=== PATIENT | male | born 1950 | race Caucasian/White ===

== ENCOUNTER 2016-03-19 19:41 | Observation (INO) | payer MEDICARE, OTHER ==
[2016-03-19] MEDS ORDERED: NITROGLYCERIN SL TABS 0.4 MG TAB SUBLINGUAL PRN (21:59)
[2016-03-19] MEDS ORDERED: ALBUTEROL NEBULIZED 2.5 MG/3 ML INHALATION PRN (22:01)
[2016-03-19] MEDS ORDERED: traMADol 50 MG TAB PO PRN (22:01)
[2016-03-19] MEDS ORDERED: BISACODYL 5 MG TABLET.DR PO PRN (22:01)
--- NOTE | 2016-03-19 22:04 | ED ---
Chest Pain HPI - General Chief Complaint: Chest Pain Stated Complaint: Chest Pain Time Seen by Provider: 03/19/16 19:43 Source: patient, EMS, RN notes reviewed Mode of arrival: EMS Limitations: no limitations - History of Present Illness Initial Comments: This patient is 66-year-old man with history of previous coronary artery disease who was transferred here by ambulance to have probable admission for chest pain. The patient has been having intermittent chest pains for a couple of weeks now. He states that he had an episode that recurred today after he had finished his dialysis session. He indicates the pain is substernal and states that there were some symptoms to his arm. He describes the pain as aching. It was moderate in intensity but it has now resolved. He did go to [facility] where he had initial set of labs and an EKG, and then he was transferred here to have telemetry monitoring and cardiology consultation. The patient is currently symptom-free. MD Complaint: chest pain -: hour(s) Onset: during rest Pain Location: substernal Pain Radiation: LUE Severity: moderate Quality: aching Consistency: now resolved Improves With: nitroglycerin Worsens With: nothing Anginal Symptoms: dyspnea Treatments Prior to Arrival: aspirin, nitroglycerin - Related Data Home Medications Medication Instructions Recorded Confirmed Montelukast [Singulair] 10 mg PO HS 12/19/13 03/19/16 Allopurinol [Zyloprim] 100 mg PO BID 04/24/14 03/19/16 Ezetimibe [Zetia] 10 mg PO HS 04/24/14 03/19/16 Fenofibrate [Lofibra] 160 mg PO DAILY 04/24/14 03/19/16 Fluticasone Propionate [Flonase] 2 sprays EA NOSTRIL DAILY 04/24/14 03/19/16 Warfarin [Coumadin] 2.5 mg PO DAILY 03/13/15 03/19/16 Aspirin EC [Ecotrin Low Dose] 81 mg PO DAILY 12/12/15 03/19/16 Cholecalciferol [Vitamin D3] 5,000 unit PO DAILY 12/12/15 03/19/16 Insulin Aspart Protam & Aspart 15 unit SQ AC-TID 12/12/15 03/19/16 [NovoLOG MIX 70-30 Flexpen] Steele-3 Acid Ethyl Esters [Lovaza] 2 gm PO BID 12/12/15 03/19/16 Pregabalin [Lyrica] 150 mg PO TID 12/12/15 03/19/16 Simvastatin 80 mg PO HS 12/12/15 03/19/16 traMADol HCL [Ultram] 50 mg PO Q6HR PRN 12/12/15 03/19/16 Albuterol Sulfate [Proair Hfa] 2 puff INHALATION RT-Q6H PRN 02/02/16 03/19/16 Beclomethasone Dipropionate [Qvar 4 puff INHALATION RT-BID 02/02/16 03/19/16 80 mcg] Bisacodyl 5 mg PO DAILY PRN 02/02/16 03/19/16 FLUoxetine HCL 80 mg PO DAILY 02/02/16 03/19/16 Multivitamins, Thera [Multivitamin] 1 tab PO DAILY 02/02/16 03/19/16 Atenolol [Tenormin] 25 mg PO MOWEFR 03/19/16 03/19/16 Furosemide [Lasix] 20 mg PO BID 03/19/16 03/19/16 Insulin Degludec [Tresiba 20 unit SQ QAM 03/19/16 03/19/16 Flextouch U-100] Isosorbide Mononitrate ER [Imdur] 60 mg PO DAILY 03/19/16 03/19/16 Sevelamer [Renvela] 800 mg PO AC-TID 03/19/16 03/19/16 Vitamin B Comp W-C/FA/Zn Cit 1 tab PO DAILY 03/19/16 03/19/16 [Dialyvite 800-Zinc 50 mg Tab] Previous Rx's Medication Instructions Recorded Omeprazole [PriLOSEC] 20 mg PO AC-BRKFST #30 capsule. 12/23/13 Allergies Allergy/AdvReac Type Severity Reaction Status Date / Time calcipotriene [From Dovonex] Allergy Unknown Verified 03/19/16 20:09 Review of Systems ROS Statement: Those systems with pertinent positive or pertinent negative responses have been documented in the HPI. ROS Other: All systems not noted in ROS Statement are negative. Constitutional: Denies: fever Respiratory: Denies: cough, dyspnea Cardiovascular: Reports: as per HPI, chest pain. Denies: palpitations, orthopnea, edema, syncope Gastrointestinal: Denies: abdominal pain, vomiting, diarrhea Musculoskeletal: Denies: back pain Skin: Denies: rash Neurological: Denies: headache, weakness, numbness EKG Findings - EKG Results: EKG: interpreted by JING, sinus rhythm (Rate approximately 61 bpm), normal axis , normal ST/T - Blocks, [place], Hypertrophy, ST Abn: AV and intraventricular conduction: 1 AV block - VT, Pacemaker, Normal: Myocardial infarction: inferior VT (old age indeterminate) (There are Q waves in lead 3 and aVF that are present on the comparison EKG) Past Medical History Past Medical History: Asthma, Coronary Artery Disease (CAD), Chest Pain / Angina , CVA/TIA, Diabetes Mellitus, Deep Vein Thrombosis (DVT), GERD/Reflux, Hyperlipidemia, Hypertension, Myocardial Infarction (VT), Renal Disease, Sleep Apnea/CPAP/BIPAP Additional Past Medical History / Comment(s): HAD URI IN JANUARY 2014-NOW RESOLVEDCVA x3 1995 leaving his left side weaker then right Last Myocardial Infarction Date:: unable to obtain History of Any Multi-Drug Resistant Organisms: MRSA Date of last positivie culture/infection: 08/12/05 MDRO Source:: Unknown Past Surgical History: Heart Catheterization Additional Past Surgical History / Comment(s): Fem pop bypass, quad bypass, finger amputation, bone and skin graft Past Anesthesia/Blood Transfusion Reactions: No Reported Reaction Past Psychological History: No Psychological Hx Reported Additional Psychological History / Comment(s): lives in the family home with his . No experience. Medically disabled. There are no animals within the home. Smoking Status: Former smoker Past Alcohol Use History: Rare Additional Past Alcohol Use History / Comment(s): chews tobacco Past Drug Use History: None Reported - Past Family History Father History Unknown: Yes Family Medical History: No Reported History, Unable to Obtain Mother Family Medical History: Unable to Obtain Brother(s) Family Medical History: Cancer Sister(s) Family Medical History: Cancer General Exam Limitations: no limitations General appearance: alert, in no apparent distress, obese Head exam: Present: atraumatic, normocephalic Eye exam: Present: normal appearance Respiratory exam: Present: normal lung sounds bilaterally. Absent: respiratory distress, wheezes, rales, rhonchi, stridor Cardiovascular Exam: Present: regular rate, normal rhythm, normal heart sounds. Absent: systolic murmur, diastolic murmur, rubs, gallop GI/Abdominal exam: Present: soft. Absent: distended, tenderness, guarding, rebound, mass Extremities exam: Present: normal inspection, normal capillary refill. Absent: pedal edema, calf tenderness Back exam: Absent: CVA tenderness (R), CVA tenderness (L) Neurological exam: Present: alert Skin exam: Present: warm, dry, intact, normal color. Absent: rash, cyanosis, diaphoretic, erythema, petechiae, pallor, mottled Course Vital Signs 03/19/16 03/19/16 03/19/16 19:46 19:53 20:08 Temperature 97.9 F Pulse Rate 60 64 Respiratory 16 16 Rate Blood Pressure 87/52 94/55 O2 Sat by Pulse 95 98 Oximetry 03/19/16 03/19/16 03/19/16 20:41 21:13 21:37 Temperature Pulse Rate 62 60 58 L Respiratory 16 16 16 Rate Blood Pressure 135/67 94/53 103/56 O2 Sat by Pulse 96 96 95 Oximetry 03/19/16 22:26 Temperature Pulse Rate 57 L Respiratory 16 Rate Blood Pressure 103/53 O2 Sat by Pulse 95 Oximetry Disposition Clinical Impression: Chest pain Disposition: ADMITTED IP TO THIS HOSP Condition: Fair
[2016-03-19] MEDS ORDERED: ATENOLOL 25 MG TAB PO SCH (22:15)
[2016-03-19] MEDS ORDERED: MORPHINE SULFATE 4 MG/ML SYRINGE IV PRN (22:29)
[2016-03-19 23:34] VITALS: BMI 38.9
[2016-03-20 02:34] LABS: Creatine Kinase MB 1.1 ng/mL (0.0-2.4); Troponin I 0.017 ng/mL (0.000-0.034)
[2016-03-20 07:00] LABS: Glucose,Whole Blood 190 mg/dL (75-99)
[2016-03-20] MEDS: BECLOMETHASONE DIP 80 MCG/PUFF INHALER INHALATION SCH ×2 (07:58→18:46)
[2016-03-20 08:00] LABS: Cholesterol 172 mg/dL (<200); HDL Cholesterol 41 mg/dL (40-60); Triglycerides 342 mg/dL (<150)
[2016-03-20 08:43] LABS: Creatine Kinase MB 0.9 ng/mL (0.0-2.4); Troponin I 0.016 ng/mL (0.000-0.034)
[2016-03-20] MEDS ORDERED: INSULIN DEGLUDEC 20 UNIT SQ SCH (09:00)
[2016-03-20] MEDS ORDERED: NON-FORMULARY DRUG (Omega-3 Acid Ethyl Esters [Lovaza] 2 GM) PO SCH (09:00)
[2016-03-20] MEDS ORDERED: NON-FORMULARY DRUG (Aspirin Ec 81 MG) PO SCH (09:00)
--- NOTE | 2016-03-20 11:37 | CONS ---
DATE OF CONSULTATION: Mr. Willoughby is a 66-year-old male patient of Dr. Kerr, I think he sees him in [place]. He presented with recurrent chest discomfort. His 12-lead ECG shows sinus rhythm with an ST-segment abnormality that may not be new in the inferior leads. First set of cardiac enzymes is normal. He is pain-free at this time. No dizziness or lightheadedness. Possible history of coronary artery disease, status post coronary artery grafting, chronic renal failure on dialysis, history of atrial fibrillation, history of preserved LV systolic function with diastolic heart failure in the past. He also had a history of DVT and obstructive sleep apnea using a BiPAP mask. Past history of MRSA. He may have had a CVA in the past. He has diabetes. FAMILY HISTORY: Not obtainable. SOCIAL HISTORY: He chews tobacco. Medication list was reviewed and is quite extensive. He is on atorvastatin 40 mg daily, he takes aspirin. Allergies are documented in the chart. On examination, he is lying comfortably in bed. His blood pressure is 128/66 mmHg, respiratory rate is normal. He looks comfortable. Pulse rate is in the 50s. He is afebrile 97.7 degrees Fahrenheit. Head and neck examination is normal. Heart sounds S1, S2 are soft. Abdomen is soft, nontender. Extremities are warm, no edema. IMPRESSION: 1. A 66-year-old male patient with known history of coronary artery disease, status post coronary artery bypass grafting, who presents with chest discomfort, first set of cardiac enzymes is normal, ECG shows some borderline changes in the inferior leads and these may be old. 2. Diabetes adult-onset. 3. History of paroxysmal atrial fibrillation. 4. End-stage kidney disease on dialysis. 5. History of obstructive sleep apnea. 6. History of preserved left ventricular systolic function. 7. Past history of deep venous thrombosis. 8. History of cerebrovascular accident in the past. SUGGEST: 1. Three set of cardiac enzymes and then if these are normal, then I will set him up for pharmacologic stress test. 2. Continue current medications and continue anticoagulation for now for stroke prevention.
[2016-03-20] MEDS: INSULN ASP PRT/INSULIN ASPART 100 UNIT/ML 10 ML VIAL SQ SCH ×3 (11:51→17:40)
[2016-03-20] MEDS: FUROSEMIDE 20 MG TAB PO SCH ×2 (12:01→20:58)
[2016-03-20] MEDS: FOLIC ACID-VIT B COMPLEX-VIT C 1 CAP PO SCH (12:01)
[2016-03-20] MEDS: CHOLECALCIFEROL 1,000 UNIT TAB PO SCH (12:01)
[2016-03-20] MEDS: ISOSORBIDE MONONITRATE ER 60 MG TAB.ER.24H PO SCH (12:01)
[2016-03-20] MEDS: PREGABALIN 75 MG CAP PO SCH ×3 (12:01→20:58)
[2016-03-20] MEDS: MULTIVITAMINS, THERA 1 EACH TAB PO SCH (12:01)
[2016-03-20] MEDS: WARFARIN 2.5 MG TAB PO SCH (12:01)
[2016-03-20] MEDS: FLUoxetine HCL 20 MG CAP PO SCH (12:02)
[2016-03-20] MEDS: ALLOPURINOL 100 MG TAB PO SCH ×2 (12:02→20:58)
[2016-03-20] MEDS: SEVELAMER 800 MG TAB PO SCH ×3 (12:02→17:40)
[2016-03-20] MEDS: ASPIRIN 325 MG TAB PO SCH (12:02)
[2016-03-20] MEDS: PANTOPRAZOLE 40 MG TABLET PO SCH (12:02)
[2016-03-20] MEDS: FENOFIBRATE 160 MG TAB PO SCH (12:02)
[2016-03-20 12:03] LABS: Glucose,Whole Blood 153 mg/dL (75-99)
[2016-03-20] MEDS: FLUTICASONE 50MCG/SPRAY NASAL 16GM EA NOSTRIL SCH (12:03)
[2016-03-20 13:20] LABS: Hemoglobin A1C 6.6 % (4.2-6.1)
[2016-03-20 17:09] LABS: Glucose,Whole Blood 236 mg/dL (75-99)
[2016-03-20 20:37] LABS: Glucose,Whole Blood 236 mg/dL (75-99)
[2016-03-20] MEDS ORDERED: EZETIMIBE 10 MG TAB PO SCH (21:00)
[2016-03-20] MEDS ORDERED: MONTELUKAST 10 MG TAB PO SCH (21:00)
[2016-03-20] MEDS ORDERED: ATORVASTATIN 40 MG TAB PO SCH (21:00)
[2016-03-21 04:19] VITALS: RESP 18
[2016-03-21 07:15] LABS: Glucose,Whole Blood 222 mg/dL (75-99)
[2016-03-21] MEDS ORDERED: AMINOPHYLLINE 500 MG/20 ML VIAL IV PRN (09:10)
[2016-03-21] MEDS ORDERED: REGADENOSON 0.4 MG/5 ML SYRINGE IV ONE (09:10)
[2016-03-21] MEDS: BECLOMETHASONE DIP 80 MCG/PUFF INHALER INHALATION SCH (09:40)
--- NOTE | 2016-03-21 12:13 | EST ---
DATE OF SERVICE: 03/21/2016 AGE: 66Y SEX: M HT: 66" WT: 240 lbs. Lexiscan Cardiolite Stress Test *Heart Rate Blood Pressure *Rest: 56 Rest: 129/56 * *Max. Achieved: 76 Maximum BP: 181/77 85% PMHR: - 100% PMHR: - *METS: - INDICATIONS: Chest pain. MEDICATIONS: - Baseline EKG showed sinus rhythm with evidence of old inferior wall NC. Blood pressure at rest is 129/56 with pulse rate of 56. A standard dose of Lexiscan was infused. EKGs taken during and after infusion did not reveal any significant changes from the baseline. FINAL IMPRESSION: 1. Negative Lexiscan stress test. 2. Report on the nuclear images to be given by the radiologist.
[2016-03-21 12:28] LABS: Glucose,Whole Blood 180 mg/dL (75-99)
--- NOTE | 2016-03-21 12:39 | HP ---
DATE OF ADMISSION: 03/19/2016 PRESENTING COMPLAINT: Chest pain. HISTORY OF PRESENTING COMPLAINT: This patient was seen by me yesterday on 03/20/2016. This morning, my H&P cannot be located. I did track down from garage door service technician, hence this is being repeated again. This is a 66-year-old patient of Dr. Man whose chronic stable medical conditions include diabetes mellitus type 2, GERD, hyperlipidemia, hypertension, some kidney disease, has sleep apnea. Patient had stroke x4 with some residual left-sided weakness. Patient does use a walker to get about. Patient also has got known peripheral artery disease. Patient presented with central chest pressure localized in the lower sternum. There is no radiation, no shortness of breath, no dizziness, no perspiration. It lasted for a good 1/2 hour. Patient had some response to nitro, nitro ( ) patient presented. REVIEW OF SYSTEMS: CONSTITUTIONAL: Tired. HEENT: Slightly decreased hearing. RESPIRATORY: Occasional shortness of breath. CARDIOVASCULAR: As above. GASTROINTESTINAL: Heartburn. GENITOURINARY: None. MUSCULOSKELETAL: Aches and pains in the joints. DERMATOLOGICAL: None. HEMATOLOGICAL: None. LYMPHATIC: None. PSYCHIATRY: Slightly forgetful. NEUROLOGICAL: Slight weakness on the left side. Past history of coronary artery disease, stroke, diabetes mellitus type 2, DVT, GERD, hyperlipidemia, hypertension, renal disease, questionable sleep apnea, stroke x4, cataract repair on the right unable to obtain. PAST SURGICAL HISTORY: Cardiac catheterization, fem-pop bypass x2, quadruple bypass, finger amputation, bone and skin graft. SOCIAL HISTORY: Patient medically disabled, lives with his , a smoker, smokes and chews tobacco. Family history of cancer, diabetes mellitus type 2, heart problems. HOME MEDICATIONS: 1. Voltaren gel 100 gm topical q.i.d. p.r.n. 2. Prozac 80 mg p.o. daily. 3. Aspirin 81 mg p.o. daily. 4. Vitamin B complex 1 tablet p.o. daily. 5. Coumadin 2.5 q.h.s. 6. Lovaza 2 gm p.o. daily. 7. Flonase 2 sprays each nostril daily. 8. Lofibra 160 mg p.o. daily. 9. NovoLog mix 70/30 fifteen units subQ a.c. t.i.d. 10. Lyrica 150 mg p.o. t.i.d. 11. Prilosec 20 mg with breakfast. 12. Multivitamin 1 tablet p.o. daily. 13. Tresiba Flextouch 50 units subQ q.h.s. 14. QVAR 80 mg 4 puffs b.i.d. 15. ProAir 2 puffs q.6 p.r.n. 16. Renvela 800 mg a.c. t.i.d. 17. Singulair 10 mg p.o. q.h.s. 18. Zetia 10 mg q.h.s. 19. Vitamin D3 one thousand units p.o. daily. 20. Allopurinol 100 mg p.o. b.i.d. 21. Ultram 50 mg p.o. q.6 p.r.n. 22. Simvastatin 80 mg q.h.s. 23. Imdur ER 60 mg p.o. daily. 24. Lasix 20 mg p.o. daily. 25. Tenormin 25 mg p.o. daily. Allergies to CALCIPOTRIENE. On examination, vital signs on presentation: Temperature 97.9, pulse 60, respiration 18, blood pressure 94/55, pulse ox 98%. GENERAL APPEARANCE: Well built, BMI of 30, lying in bed, tired-appearing. EYES: Pupils equal. Conjunctivae normal. HEENT: Oral cavity normal. NECK: JVD not raised. Mass not palpable. Respiratory effort normal. LUNGS: Slightly diminished breath sounds. CARDIOVASCULAR: First and second sounds normal. No edema. ABDOMEN: Soft, nontender. Liver and spleen not palpable. LYMPHATIC: No lymph node palpable in neck or axillae. PSYCHIATRY: Patient able to answer simple questions. NEUROLOGICAL: Pupils equal. Cranial nerves grossly intact. Mild weakness on the left side. INVESTIGATIONS: Accu-Cheks are noted, troponins are noted. EKG normal sinus rhythm with some spossible ST segment, which is questionable. ASSESSMENT: 1. Possible unstable angina in a patient with known coronary artery disease. 2. Coronary artery disease with prior history of quadruple bypass. 3. Peripheral artery disease with prior history femoropopliteal bypass type 2. 4. Left-sided weakness power 4/5 from a previous stroke. 5. Diabetes mellitus type 2, chronically on insulin. 6. Gastroesophageal reflux disease. 7. Hyperlipidemia. 8. Essential hypertension. PLAN: Cardiology was consulted, who plan to do a stress test. Care was discussed with the patient. atient was seen by me yesterday as reported above has gone. DATE OF SERVICE: 03/20/2016. Patient was seen by me yesterday, as reported above, my dictation has gone missing.
--- NOTE | 2016-03-21 12:43 | NM ---
EXAMINATION TYPE: NM stress lexiscan cardiolite DATE OF EXAM: 03/21/2016 12:33 PM COMPARISON: NONE HISTORY: History of tobacco use, hypertension, diabetes, prior stroke, family history of coronary art amalia disease, angina, and prior catheterization with 4 vessel CABG presents with chest pain. TECHNIQUE: After the intravenous administration of 9.2 mCi Tc 99m Sestamibi - Cardiolite resting SPE CT images acquired 55 minutes post injection. The patient received 0.4mg Lexiscan, 25 mCi Tc 99m Sestamibi - Stress images obtained 40 minutes post injection FINDINGS: Review of stress and rest SPECT images demonstrates diminished uptake involving the inferior left chava tricular wall seen best on short axis and vertical long axis views on stress and rest SPECT imaging w ith some extension to involve the basal left lateral wall noted. Findings suggest old infarct at this level. There is suggestion of some increased color intensity on rest images versus rest images invol ving the lateral left ventricular wall in the mid to apical segment seen best on horizontal long axis views in which. Infarct ischemia cannot be excluded. Finding is confirmed on Polar map. Gated analys is shows normal wall motion of the anterior and septal pace with an estimated left ventricular eject ion fraction of 61 %. Suboptimal analysis of inferior wall is present. IMPRESSION: Suspect old infarct left inferior ventricular wall with lateral wall extension, some areas of brad-in farct ischemia cannot be excluded particularly in the lateral wall, need to further investigate with direct catheter angiogram should be based on clinical and EKG correlation.
[2016-03-21 12:44] LABS: Basophils % (A) 1 %; CH 29.8; CHCM 33.2; Eosinophils # (A) 0.2 k/uL (0-0.7); Eosinophils % (A) 3 %; HCT 40.4 % (39.0-53.0); HDW 2.59; HGB 13.3 gm/dL (13.0-17.5); Luc # (Auto) 0.21; Luc % (Auto) 3; Lymphocytes # (A) 1.2 k/uL (1.0-4.8); Lymphocytes % (A) 18 %; MCH 29.7 pg (25.0-35.0); MCHC 32.8 g/dL (31.0-37.0); MCV 90.3 fL (80.0-100.0); Mean Platelet Volume 9.1; Monocytes # (A) 0.5 k/uL (0-1.0); Monocytes % (A) 7 %; Neutrophils # (A) 4.7 k/uL (1.3-7.7); Neutrophils % (A) 69 %; RBC 4.48 m/uL (4.30-5.90); RDW 13.7 % (11.5-15.5); WBC 6.8 k/uL (3.8-10.6); WBC (Perox) 6.98
[2016-03-21 12:54] LABS: Potassium 5.3 mmol/L (3.5-5.1)
[2016-03-21] MEDS: INSULN ASP PRT/INSULIN ASPART 100 UNIT/ML 10 ML VIAL SQ SCH ×3 (12:58→19:03)
[2016-03-21] MEDS: SEVELAMER 800 MG TAB PO SCH ×2 (13:29→19:03)
[2016-03-21 17:21] LABS: Glucose,Whole Blood 233 mg/dL (75-99)
[2016-03-21] MEDS ORDERED: GELATIN SPONGE,ABSORB (SMALL) 1 EACH SPONGE ONE (19:00)
[2016-03-21] MEDS: FUROSEMIDE 20 MG TAB PO SCH (19:02)
[2016-03-21] MEDS: ALLOPURINOL 100 MG TAB PO SCH (19:02)
[2016-03-21] MEDS: CHOLECALCIFEROL 1,000 UNIT TAB PO SCH (19:02)
[2016-03-21] MEDS: ASPIRIN 325 MG TAB PO SCH (19:02)
[2016-03-21] MEDS: FOLIC ACID-VIT B COMPLEX-VIT C 1 CAP PO SCH (19:02)
[2016-03-21] MEDS: MULTIVITAMINS, THERA 1 EACH TAB PO SCH (19:02)
[2016-03-21] MEDS: PANTOPRAZOLE 40 MG TABLET PO SCH (19:02)
[2016-03-21] MEDS: ISOSORBIDE MONONITRATE ER 60 MG TAB.ER.24H PO SCH (19:02)
[2016-03-21] MEDS: FENOFIBRATE 160 MG TAB PO SCH (19:02)
[2016-03-21] MEDS: FLUTICASONE 50MCG/SPRAY NASAL 16GM EA NOSTRIL SCH (19:02)
[2016-03-21] MEDS: FLUoxetine HCL 20 MG CAP PO SCH (19:02)
[2016-03-21] MEDS: PREGABALIN 75 MG CAP PO SCH (19:03)
[2016-03-21] MEDS: WARFARIN 2.5 MG TAB PO SCH (19:03)
[2016-03-21 20:53] VITALS: BP 106/64; PULSE 61; TEMP 97.2
--- NOTE | 2016-03-22 08:19 | DS ---
DATE OF ADMISSION: 03/19/2016 DATE OF DISCHARGE: 03/21/2016 FINAL DIAGNOSES: 1. Chest pain in a patient with known coronary artery disease. 2. Coronary artery disease with prior history of quadruple bypass. 3. Peripheral artery disease with prior history of femorofemoral bypass. 4. Left-sided weakness, power 4/5 from previous stroke. 5. Diabetes mellitus type 2, chronically on insulin. 6. Gastroesophageal reflux disease. 7. Hyperlipidemia. 8. Essential hypertension. 9. Gait dysfunction; uses a walker. 10. End-stage kidney disease on hemodialysis. HOSPITAL COURSE: This patient with known coronary artery disease presented with chest pain. The patient underwent a nuclear stress test. Patient seen by Dr. Alvarez. He okayed the patient to be discharged with no change in medications. On examination, lungs are clear. CARDIOVASCULAR: First and second sounds normal. Patient has had no further chest symptoms. DISCHARGE MEDICATIONS: 1. Singulair 10 mg q.h.s. 2. Prilosec 20 mg p.o. with breakfast. 3. Allopurinol 100 mg b.i.d. 4. Zetia 10 mg p.o. q.h.s. 5. Lofibra 160 mg p.o. daily. 6. Flonase 2 sprays each nostril daily. 7. Coumadin 2.5 mg p.o. q.h.s. 8. Aspirin 81 mg p.o. daily. 9. Vitamin D3, 5000 units p.o. daily. 10. NovoLog Mix 70/30, 15 units a.c. ( ) 11. Lovaza 2 grams p.o. b.i.d. 12. Lyrica 150 mg t.i.d. 13. Simvastatin 80 mg q.h.s. 14. Ultram 50 mg p.o. q.6 p.r.n. 15. ProAir 2 puffs q.6 p.r.n. 16. Qvar 80 mcg 4 puffs b.i.d. 17. Prozac 80 mg p.o. daily. 18. Multivitamin 1 tablet p.o. daily. 19. Tenormin 25 mg p.o. daily. 20. Voltaren topical q.i.d. p.r.n. 21. Lasix 20 mg p.o. b.i.d. 22. Flextouch 50 units subcu q.h.s., that is Tresiba. 23. Imdur ER 60 mg a day. 24. Renvela 800 mg a.c. t.i.d. 25. Dialyvite 1 tablet p.o. daily. 26. Nitrostat 0.4 sublingual q.5 p.r.n. Follow up with Dr. Man in one week. Follow up with Dr. Morenita Kerr in one week. Discharge home.
== END 2016-03-21 20:10 | disposition home or self-care (01) ==
LOC: EC 19:41 → 3OBS 21:59
PROVIDERS: ADMIT Hospitalist; ATTEND Hospitalist
DX: R07.9 Chest pain, unspecified (principal); I25.10 Atherosclerotic heart disease of native coronary artery without angina pectoris; E11.22 Type 2 diabetes mellitus with diabetic chronic kidney disease; E78.5 Hyperlipidemia, unspecified; G47.33 Obstructive sleep apnea (adult) (pediatric); I25.2 Old myocardial infarction; I48.0 Paroxysmal atrial fibrillation; I50.32 Chronic diastolic (congestive) heart failure; I73.9 Peripheral vascular disease, unspecified; J45.909 Unspecified asthma, uncomplicated; K21.9 Gastro-esophageal reflux disease without esophagitis; N18.6 End stage renal disease; I13.2 Hypertensive heart and chronic kidney disease with heart failure and with stage 5 chronic kidney disease, or end stage renal disease; Z99.2 Dependence on renal dialysis; Z79.4 Long term (current) use of insulin; I69.354 Hemiplegia and hemiparesis following cerebral infarction affecting left non-dominant side; Z79.01 Long term (current) use of anticoagulants; Z79.82 Long term (current) use of aspirin; Z86.718 Personal history of other venous thrombosis and embolism; Z95.1 Presence of aortocoronary bypass graft; R26.9 Unspecified abnormalities of gait and mobility; Z72.0 Tobacco use; Z79.899 Other long term (current) drug therapy; Z79.51 Long term (current) use of inhaled steroids; Z88.8 Allergy status to other drugs, medicaments and biological substances
CPT/HCPCS: 36415; 94640 ×3; 93005 ×2; 93017; 80061; 80048; 83036; 82550; 82553; 84484 ×2; 85025; 78452; 99285; G0378 ×3; G0257; A9500; J2785; 90935

== ENCOUNTER → 2016-04-10 | Outpatient (CLI) | payer MEDICARE, OTHER ==
--- NOTE | 2016-04-10 22:41 | PN ---
Myles is coming to see me in followup regarding his obstructive sleep apnea. The patient is staying at [facility]; he has been there for the past year. He is known to have obstructive sleep apnea and he is using an Auto CPAP unit with a minimum pressure of 6 and a maximum pressure of 15. He is averaging around 5.4 hours of CPAP use per night. His P90 pressure is at 8.6. He is compliant with CPAP therapy. He is using a Simplus full-face mask. No major hypersomnia or sleepiness during the day. He has no specific complaints otherwise for now. He has multiple comorbidities, most significant of which is end-stage renal disease, and the patient is currently on hemodialysis. He is known to have diabetes, congestive heart failure, CVA/TIA, hypertension, coronary artery disease with previous myocardial infarction, peripheral vascular disease and CHF with diastolic dysfunction. CURRENT VITALS: BP is 102/64, pulse 50, respiratory rate 16. Weight is 242. Temperature is 97.8, saturation 95% on room air. GENERAL APPEARANCE: Calm, comfortable. HEENT: Negative for JVD. There is no goiter or neck masses. LUNGS: Diminished breath sounds bilaterally. HEART: Sounds are regular rate and rhythm. Normal S1, S2. No S3. No S4. No murmurs. ABDOMEN: Soft, nontender. No organomegaly. EXTREMITIES: No edema. No cyanosis or clubbing. The patient has a functional AV fistula. IMPRESSION: Symptomatic obstructive sleep apnea, severe, currently inactive and stable. The patient is receiving oxygen with CPAP therapy with a pressure minimum of 6 and a maximum of 15. PLAN: 1. Renew this patient's CPAP supplies. 2. Encourage weight loss. 3. Will see him back in a year's time in followup; earlier if needed.
== END | disposition home or self-care (01) ==
LOC: SLEEP 14:23
PROVIDERS: ATTEND Internal Medicine Critical Care Medicine
DX: G47.33 Obstructive sleep apnea (adult) (pediatric) (principal); Z99.89 Dependence on other enabling machines and devices

== ENCOUNTER 2016-06-27 16:40 | Inpatient (IN) | payer MEDICARE, OTHER ==
[2016-06-27] MEDS ORDERED: SODIUM CHLORIDE 0.9% 1,000 ML IV STA (17:01)
[2016-06-27] MEDS ORDERED: NOREPINEPHRIN 4 MG-0.9% NS PMX 4 MG/250 ML ML IV ONE (17:01)
--- NOTE | 2016-06-27 17:18 | ED ---
General Adult HPI - General Chief complaint: Shortness of Breath Stated complaint: hypotension Time Seen by Provider: 06/27/16 17:00 Source: patient, EMS, RN notes reviewed Mode of arrival: EMS Limitations: no limitations - History of Present Illness Initial comments: This is a 66-year-old male who had extra dialysis done today apparently believes he was found to be hypotensive. He was transferred from [facility]. He was started on dopamine and IV fluids he apparently had some response to this but upon arrival here was still noted to be hypotensive. He has had 2 peripheral IVs in. He has a dialysis fistula in the left upper extremity. He denies any fevers chills nausea vomiting sweats at this time. He purely had a white count 10.4 and chest x-ray shows some pulmonary prominence. He had blood pressure apparently of 84/64. - Related Data Home Medications Medication Instructions Recorded Confirmed Montelukast [Singulair] 10 mg PO HS 12/19/13 06/27/16 Allopurinol [Zyloprim] 100 mg PO BID 04/24/14 06/27/16 Fenofibrate [Lofibra] 160 mg PO DAILY 04/24/14 06/27/16 Fluticasone Propionate [Flonase] 2 sprays EA NOSTRIL DAILY 04/24/14 06/27/16 Warfarin [Coumadin] 2.5 mg PO HS 03/13/15 06/27/16 [place]-3 Acid Ethyl Esters [Lovaza] 2 gm PO BID 12/12/15 06/27/16 traMADol HCL [Ultram] 50 mg PO Q6HR PRN 12/12/15 06/27/16 FLUoxetine HCL 80 mg PO DAILY 02/02/16 06/27/16 Atenolol [Tenormin] 25 mg PO DAILY 03/19/16 06/27/16 Furosemide [Lasix] 20 mg PO BID 03/19/16 06/27/16 Insulin Degludec [Tresiba 60 unit SQ HS 03/19/16 06/27/16 Flextouch U-100] Isosorbide Mononitrate ER [Imdur] 60 mg PO DAILY 03/19/16 06/27/16 Albuterol Inhaler [Ventolin Hfa 2 puff INHALATION RT-Q4H PRN 06/27/16 06/27/16 Inhaler] Atorvastatin [Lipitor] 40 mg PO HS 06/27/16 06/27/16 Beclomethasone Dipropionate [Qvar 2 puff INHALATION RT-BID 06/27/16 06/27/16 40 mcg] Isosorbide Mononitrate ER [Imdur] 30 mg PO BID 06/27/16 06/27/16 Lactulose 10 gm PO DAILY 06/27/16 06/27/16 Previous Rx's Medication Instructions Recorded Nitroglycerin Sl Tabs [Nitrostat] 0.4 mg SUBLINGUAL Q5M PRN #0 tab 03/21/16 Allergies Allergy/AdvReac Type Severity Reaction Status Date / Time calcipotriene [From Dovonex] Allergy Unknown Verified 06/27/16 17:47 Review of Systems ROS Statement: Those systems with pertinent positive or pertinent negative responses have been documented in the HPI. ROS Other: All systems not noted in ROS Statement are negative. Past Medical History Past Medical History: Asthma, Coronary Artery Disease (CAD), Chest Pain / Angina , CVA/TIA, Diabetes Mellitus, Deep Vein Thrombosis (DVT), GERD/Reflux, Hyperlipidemia, Hypertension, Myocardial Infarction (NM), Renal Disease, Sleep Apnea/CPAP/BIPAP Additional Past Medical History / Comment(s): HAD URI IN JANUARY 2014-NOW RESOLVEDCVA x4 1995 leaving his left side weaker then right. Cataract repair in right Last Myocardial Infarction Date:: unable to obtain History of Any Multi-Drug Resistant Organisms: MRSA Date of last positivie culture/infection: 08/12/05 MDRO Source:: Ankle left Past Surgical History: Heart Catheterization Additional Past Surgical History / Comment(s): Fem pop bypass X2, quad bypass, finger amputation, bone and skin graft Past Anesthesia/Blood Transfusion Reactions: No Reported Reaction Past Psychological History: Depression Additional Psychological History / Comment(s): lives in the family home with his . No experience. Medically disabled. There are no animals within the home. seasonal disorder Smoking Status: Former smoker Past Alcohol Use History: Rare Additional Past Alcohol Use History / Comment(s): chews tobacco Past Drug Use History: None Reported - Past Family History Father History Unknown: Yes Family Medical History: Chest Pain / Angina Mother Family Medical History: Cancer, Diabetes Mellitus Additional Family Medical History / Comment(s): Heart issues Brother(s) Family Medical History: Cancer, Diabetes Mellitus Additional Family Medical History / Comment(s): stomach CA, Depression Sister(s) Family Medical History: Cancer Additional Family Medical History / Comment(s): Lung ca, breast Ca, Bone CA, Stomach CA General Exam - General Exam Comments Initial Comments: This is a well-developed well-nourished awake alert oriented 3 male he denies any pain at this time denies any shortness of breath. Limitations: no limitations General appearance: alert Head exam: Present: atraumatic, normocephalic, normal inspection Eye exam: Present: normal appearance, PERRL, EOMI. Absent: scleral icterus, conjunctival injection, periorbital swelling ENT exam: Present: mucous membranes dry Neck exam: Present: normal inspection. Absent: tenderness, meningismus, lymphadenopathy Respiratory exam: Present: normal lung sounds bilaterally. Absent: respiratory distress, wheezes, rales, rhonchi, stridor Cardiovascular Exam: Present: regular rate, normal rhythm, normal heart sounds. Absent: systolic murmur, diastolic murmur, rubs, gallop, clicks GI/Abdominal exam: Present: soft, normal bowel sounds, other (Obese abdomen). Absent: distended, tenderness, guarding, rebound, rigid Extremities exam: Present: full ROM, normal capillary refill, other (Patient does have a functional fistula in left upper extremity). Absent: tenderness, pedal edema, joint swelling, calf tenderness Back exam: Present: normal inspection Neurological exam: Present: alert, oriented X3, CN II-XII intact Psychiatric exam: Present: normal affect, normal mood Skin exam: Present: warm, dry, intact, normal color. Absent: rash Course Vital Signs 06/27/16 06/27/16 06/27/16 16:42 17:00 17:15 Temperature 98.3 F Pulse Rate 65 64 64 Respiratory 18 18 20 Rate Blood Pressure 97/51 68/45 107/57 O2 Sat by Pulse 95 97 97 Oximetry 06/27/16 06/27/16 06/27/16 17:30 18:00 18:15 Temperature Pulse Rate 67 63 60 Respiratory 18 18 18 Rate Blood Pressure 104/62 117/53 107/52 O2 Sat by Pulse 98 97 98 Oximetry 06/27/16 06/27/16 06/27/16 18:30 19:41 20:01 Temperature Pulse Rate 68 63 62 Respiratory 18 18 18 Rate Blood Pressure 110/65 114/66 125/71 O2 Sat by Pulse 96 97 98 Oximetry 06/27/16 06/27/16 06/27/16 20:14 20:24 20:54 Temperature Pulse Rate 64 62 62 Respiratory 18 18 18 Rate Blood Pressure 98/56 98/57 93/55 O2 Sat by Pulse 94 L 2 L Oximetry EKG Findings - EKG Results: EKG: interpreted by ERMD, sinus rhythm (Sinus rhythm with first-degree AV block NJ interval 216 the rate was 71 QRS duration 84 QT/QTC of 396/4:30 nonspecific inferior changes.) Medical Decision Making - Medical Decision Making The patient did require IV fluids and was switched from dopamine to leophed which was low dose the patient had 2 adequate IVs done the left pressure did respond he was that she taken off the Levaphed . Patient will be admitted for evaluation by nephrology. Disposition Clinical Impression: Chronic renal failure syndrome, Hypotension Disposition: ADMITTED IP TO THIS HOSP Condition: Stable
[2016-06-27] MEDS ORDERED: SODIUM CHLORIDE 0.9% 500 ML IV STA (21:04)
[2016-06-27] MEDS ORDERED: NALOXONE 0.4 MG/ML 1 ML VIAL IV PRN (21:17)
[2016-06-27] MEDS ORDERED: traMADol 50 MG TAB PO PRN (21:20)
[2016-06-27] MEDS ORDERED: NITROGLYCERIN SL TABS 0.4 MG TAB SUBLINGUAL PRN (21:20)
[2016-06-27] MEDS: SODIUM CHLORIDE 0.9% 1,000 ML IV SCH (22:12)
[2016-06-27] MEDS ORDERED: ALPRAZolam 0.25 MG TAB PO PRN (23:10)
[2016-06-27] MEDS ORDERED: HYDROcodone/APAP 5-325MG 1 EACH TAB PO PRN (23:10)
[2016-06-27] MEDS ORDERED: HYDROmorphone 1 MG/ML 1 ML SYRINGE IVP PRN (23:10)
[2016-06-28 00:34] LABS: Glucose,Whole Blood 81 mg/dL (75-99)
[2016-06-28 04:02] VITALS: BMI 38.9
[2016-06-28 05:07] LABS: INR 3.1 (<1.1); Prothrombin Time 29.5 sec (9.0-12.0)
[2016-06-28 05:11] LABS: Basophils % (A) 0 %; CH 30.2; CHCM 33.5; Eosinophils # (A) 0.2 k/uL (0-0.7); Eosinophils % (A) 2 %; HCT 36.5 % (39.0-53.0); HDW 2.49; HGB 12.2 gm/dL (13.0-17.5); Luc # (Auto) 0.36; Luc % (Auto) 4; Lymphocytes # (A) 2.5 k/uL (1.0-4.8); Lymphocytes % (A) 29 %; MCH 30.2 pg (25.0-35.0); MCHC 33.3 g/dL (31.0-37.0); MCV 90.8 fL (80.0-100.0); Mean Platelet Volume 8.6; Monocytes # (A) 0.7 k/uL (0-1.0); Monocytes % (A) 9 %; Neutrophils # (A) 4.8 k/uL (1.3-7.7); Neutrophils % (A) 56 %; RBC 4.02 m/uL (4.30-5.90); RDW 14.4 % (11.5-15.5); WBC 8.7 k/uL (3.8-10.6); WBC (Perox) 8.51
[2016-06-28 05:18] LABS: Calcium 9.7 mg/dL (8.4-10.2); Magnesium 1.9 mg/dL (1.6-2.3); Phosphorous 6.7 mg/dL (2.5-4.5); Potassium 5.4 mmol/L (3.5-5.1)
[2016-06-28] MEDS: ALBUTEROL NEBULIZED 2.5 MG/3 ML INHALATION SCH ×4 (08:06→20:02)
[2016-06-28] MEDS: BUDESONIDE 0.5 MG/2 ML NEBU INHALATION SCH ×2 (08:07→20:02)
[2016-06-28] MEDS: ALLOPURINOL 100 MG TAB PO SCH ×2 (08:14→21:00)
[2016-06-28] MEDS: ISOSORBIDE MONONITRATE ER 30 MG TAB.ER.24H PO SCH ×2 (08:15→21:00)
[2016-06-28] MEDS: FLUoxetine HCL 20 MG CAP PO SCH (08:15)
[2016-06-28] MEDS: FUROSEMIDE 20 MG TAB PO SCH ×2 (08:16→18:08)
[2016-06-28] MEDS: LACTULOSE 20 GM/30 ML CUP PO SCH (08:16)
[2016-06-28] MEDS: FENOFIBRATE 160 MG TAB PO SCH (08:16)
[2016-06-28] MEDS: FLUTICASONE 50MCG/SPRAY NASAL 16GM EA NOSTRIL SCH (08:16)
[2016-06-28 08:22] LABS: Glucose,Whole Blood 73 mg/dL (75-99)
[2016-06-28] MEDS: PANTOPRAZOLE 40 MG TABLET PO SCH (08:44)
[2016-06-28] MEDS ORDERED: NON-FORMULARY DRUG (Omega-3 Acid Ethyl Esters [Lovaza] 2 GM) PO SCH (09:00)
[2016-06-28] MEDS ORDERED: ATENOLOL 25 MG TAB PO SCH (09:00)
--- NOTE | 2016-06-28 09:04 | HP ---
DATE OF ADMISSION: 06/27/2016 CHIEF COMPLAINT: Hypotension. HISTORY OF PRESENT ILLNESS: This 66-year-old gentleman with a past medical history of coronary artery disease, history of CVA, TIA, diabetes mellitus, history of DVT, history of gastroesophageal reflux disease, hypertension, hyperlipidemia, history of myocardial infarction, history of MRSA, history of depression followed by Dr. Mario Skelton is staying in [facility] in [place] for rehabilitation purposes. Recently the patient was noted to have hypotension. The patient subsequently transferred to [facility] and the patient was given bolus fluids and the patient is also given a small dose of dopamine and patient transferred to [facility] Emergency Room for further evaluation and treatment. In the ER also blood pressure fluctuating, but dopamine was stopped, but subsequently the patient was also given Levophed also. The blood pressure again is going down to 79/53, but currently it is 127/78. So patient is being admitted for further evaluation and treatment. There is no history of fever, rigors. No history of headache, loss of consciousness, or seizures. The patient is slightly confused. PAST MEDICAL HISTORY: History of coronary artery disease, history of chest pain, CVA, TIA, diabetes mellitus, DVT, GERD, hypertension, hyperlipidemia, history of myocardial infarction, history sleep apnea, depression. Medications prior to admission include home medications: 1. Ultram 50 mg q.6 p.r.n. 2. Coumadin 2.5 mg p.o. daily. 3. Singulair 10 mg at bedtime. 4. Lipitor 40 mg daily. 5. Lactulose 10 mg daily. 6. Triseba 60 units subcu q.h.s. 7. Ventolin HFA 2 puffs q.4 p.r.n. 8. Lovaza 2 grams p.o. b.i.d. 9. Nitrostat 0.4 sublingual p.r.n. 10. Imdur 30 mg p.o. b.i.d., 60 mg daily. 11. Lasix 20 mg p.o. b.i.d. 12. Flonase 2 sprays daily. 13. Lofibra 160 mg p.o. daily. 14. Prozac 80 mg p.o. daily. 15. QVAR 40 millimicrogram 2 puffs b.i.d. 16. Tenormin 25 mg p.o. daily. 17. Zyloprim 100 mg p.o. b.i.d. ALLERGIES: DOVONEX. FAMILY HISTORY: History of diabetes mellitus, cancer, heart issues in the family. SOCIAL HISTORY: Previous history of smoking. No history of smoking or alcohol currently. REVIEW OF SYSTEMS: ENT: Diminishing hearing, diminished vision. CARDIOVASCULAR: No angina. RESPIRATORY: As mentioned earlier. GI: No nausea. : No dysuria. NERVOUS SYSTEM: No numbness or weakness. ALLERGY/IMMUNOLOGY: Asthma, hayfever. MUSCULOSKELETAL: As mentioned earlier. HEMATOLOGY: As mentioned earlier. ENDOCRINE: As mentioned earlier. CONSTITUTIONAL: As mentioned earlier. DERMATOLOGY: Negative. RHEUMATOLOGY: Negative. PSYCHIATRY: As mentioned earlier. PHYSICAL EXAMINATION: Patient is alert and oriented x3. Pulse 64, blood pressure 79/53, respirations 18, pulse ox 98% on 2 liters. Temperature 98.6. HEENT: Conjunctivae normal. Oral mucosa moist. NECK: No jugular venous distention. No carotid bruit. No lymph node enlargement. CARDIOVASCULAR: S1 and S2, muffled. No S3, no S4. RESPIRATORY: Breath sounds diminished at the bases. A few scattered rhonchi, no crackles. ABDOMEN: Soft, obese, nontender. No mass palpable. LEGS: Minimal edema. NERVOUS SYSTEM: Higher function as mentioned. Moves all four limbs. No focal motor deficits. LYMPHATIC: No lymphadenopathy in the neck, axillae or groin. SKIN: No ulcer, rash or bleeding. LABS: Pending at this time. ASSESSMENT: 1. Hypotension for evaluation, possibly hypovolemia. 2. Chronic renal failure stage V on hemodialysis. 3. History of asthma. 4. History of coronary artery disease. 5. History of cerebrovascular accident, transient ischemic attack. 6. Diabetes, type 2. 7. History of deep venous thrombosis. 8. History of gastroesophageal reflux disease. 9. Hypertension. 10. Hyperlipidemia. 11. History of myocardial infarction. 12. History of sleep apnea. 13. History of CVI. 14. History of cataracts. 15. History of methicillin-resistant Staphylococcus aureus. 16. History of femoropopliteal bypass x2. 17. History of depression. 18. Remote history nicotine dependence. 19. History of coronary artery disease, coronary artery bypass grafting 20. History of congestive heart failure with chronic diastolic dysfunction, ejection fraction 50% to 55%. 21. History of paroxysmal atrial fibrillation. 22. History of diabetic nephropathy. 23. History of transient ischemic attack. 24. History of morbid obesity. 25. Gait dysfunction. 26. FULL CODE. RECOMMENDATIONS and DISCUSSION: In this 66-year-old gentleman who presented with multiple complex medical issues, will monitor the patient closely. Continue with the current medications and symptomatic treatment. Fluid challenges. I would recommend Levophed and continue to monitor. If the blood pressures continues to be low and admit to ICU. Consult Dr. [place]. Continue the rest of the medications. Repeat labs. Guarded prognosis because of multiple complex medical issues. Further recommendations to follow. A copy of dictation forwarded to Dr. Mario Skelton who is the primary physician.
--- NOTE | 2016-06-28 10:42 | P.NPCON ---
History of Present Illness - Reason for Consult end stage renal disease - History of Present Illness Reason for consultation: End-stage renal disease History of present illness: Patient is a 66-year-old male seen in renal consultation for end- stage renal disease. He is maintained on hemodialysis on a Saturday schedule via left upper extremity AV fistula. Patient underwent hemodialysis yesterday but was noted to be somewhat hypotensive. [facility] in [place]. He went to [facility] and there received 1.5 L of fluid resuscitation and also required temporary dopamine as well as levo fed. He was subsequently transferred to [facility] and has been relatively stable without any requirement of vasopressors. He is currently resting in bed. Denies any chest pain or shortness of breath. Appetite is good. Denies any vomiting or diarrhea. No active complaints at this time. Vital signs are stable. General: The patient appeared well nourished and normally developed. HEENT: Head exam is unremarkable. Neck is without jugular venous distension. LUNGS: Lungs are clear to auscultation and percussion. Breath sounds decreased. HEART: Rate and Rhythm are regular. First and second heart sounds normal. No murmurs, rubs or gallops. ABDOMEN: Abdominal exam reveals normal bowel sounds. Non-tender and non- distended. No evidence of peritonitis. EXTREMITITES: No clubbing, cyanosis, or edema. Past Medical History Past Medical History: Asthma, Coronary Artery Disease (CAD), Chest Pain / Angina , CVA/TIA, Diabetes Mellitus, Deep Vein Thrombosis (DVT), GERD/Reflux, Hyperlipidemia, Hypertension, Myocardial Infarction (DC), Renal Disease, Sleep Apnea/CPAP/BIPAP Additional Past Medical History / Comment(s): HAD URI IN JANUARY 2014-NOW RESOLVEDCVA x4 1995 leaving his left side weaker then right. Cataract repair in right Last Myocardial Infarction Date:: unable to obtain History of Any Multi-Drug Resistant Organisms: MRSA Date of last positivie culture/infection: 08/12/05 MDRO Source:: Ankle left Past Surgical History: Heart Catheterization Additional Past Surgical History / Comment(s): Fem pop bypass X2, quad bypass, finger amputation, bone and skin graft Past Anesthesia/Blood Transfusion Reactions: No Reported Reaction Past Psychological History: Depression Additional Psychological History / Comment(s): lives in the family home with his . No experience. Medically disabled. There are no animals within the home. seasonal disorder Smoking Status: Former smoker Past Alcohol Use History: Rare Additional Past Alcohol Use History / Comment(s): chews tobacco Past Drug Use History: None Reported - Past Family History Father History Unknown: Yes Family Medical History: Chest Pain / Angina Mother Family Medical History: Cancer, Diabetes Mellitus Additional Family Medical History / Comment(s): Heart issues Brother(s) Family Medical History: Cancer, Diabetes Mellitus Additional Family Medical History / Comment(s): stomach CA, Depression Sister(s) Family Medical History: Cancer Additional Family Medical History / Comment(s): Lung ca, breast Ca, Bone CA, Stomach CA Medications and Allergies Home Medications Medication Instructions Recorded Confirmed Type Montelukast [Singulair] 10 mg PO HS 12/19/13 06/27/16 History Allopurinol [Zyloprim] 100 mg PO BID 04/24/14 06/27/16 History Fenofibrate [Lofibra] 160 mg PO DAILY 04/24/14 06/27/16 History Fluticasone Propionate [Flonase] 2 sprays EA NOSTRIL DAILY 04/24/14 06/27/16 History Warfarin [Coumadin] 2.5 mg PO HS 03/13/15 06/27/16 History [place]-3 Acid Ethyl Esters [Lovaza] 2 gm PO BID 12/12/15 06/27/16 History traMADol HCL [Ultram] 50 mg PO Q6HR PRN 12/12/15 06/27/16 History FLUoxetine HCL 80 mg PO DAILY 02/02/16 06/27/16 History Atenolol [Tenormin] 25 mg PO DAILY 03/19/16 06/27/16 History Furosemide [Lasix] 20 mg PO BID 03/19/16 06/27/16 History Insulin Degludec [Tresiba 60 unit SQ HS 03/19/16 06/27/16 History Flextouch U-100] Isosorbide Mononitrate ER [Imdur] 60 mg PO DAILY 03/19/16 06/27/16 History Albuterol Inhaler [Ventolin Hfa 2 puff INHALATION RT-Q4H PRN 06/27/16 06/27/16 History Inhaler] Atorvastatin [Lipitor] 40 mg PO HS 06/27/16 06/27/16 History Beclomethasone Dipropionate [Qvar 2 puff INHALATION RT-BID 06/27/16 06/27/16 History 40 mcg] Isosorbide Mononitrate ER [Imdur] 30 mg PO BID 06/27/16 06/27/16 History Lactulose 10 gm PO DAILY 06/27/16 06/27/16 History Allergies Allergy/AdvReac Type Severity Reaction Status Date / Time calcipotriene [From Dovonex] Allergy Unknown Verified 06/27/16 17:47 Physical Exam Vitals: Vital Signs Temp Pulse Resp BP Pulse Ox 06/28/16 08:26 55 L 06/28/16 08:07 56 L 06/28/16 08:00 18 06/28/16 06:00 56 L 95 06/28/16 04:00 55 L 18 90/48 96 06/28/16 02:00 59 L 80/58 93 L 06/28/16 00:25 64 06/28/16 00:14 100/59 06/28/16 00:01 98.3 F 60 18 95/60 96 06/27/16 23:38 60 18 95/60 96 06/27/16 22:52 64 18 117/63 06/27/16 22:41 62 18 127/68 95 06/27/16 21:29 64 18 79/53 98 Intake and Output 06/27/16 06/28/16 06/28/16 22:59 06:59 14:59 Intake Total 11.25 20 Output Total 0 Balance 11.25 0 20 Intake: IV 20 Sodium Chloride 0.9% 1, 20 000 ml @ 20 mls/hr IV . Q24H [facility] Rx#:[id number] Intake, IV Titration 11.25 Amount Norepinephrin 4 mg-0.9% 11.25 Ns Pmx 4 mg In 250 ml @ Titrate IV .Q0M ONE Rx#: [id number] Output: Urine 0 Other: Weight 109.316 kg Results - Lab Results Most recent lab results Calcium 9.7 mg/dL (8.4-10.2) 06/28/16 04:23 Phosphorus 6.7 mg/dL (2.5-4.5) H 06/28/16 04:23 Magnesium 1.9 mg/dL (1.6-2.3) 06/28/16 04:23 06/28/16 04:23 06/28/16 04:23 Assessment and Plan Plan: Assessment: #1. End-stage renal disease maintained on hemodialysis on a Saturday schedule via left upper extremity AV fistula. #2. Hypotension which appears to be related to hypovolemia. Improved with volume resuscitation. Currently off all vasopressors. Cortisol level pending. No evidence of sepsis. #3. Chronic kidney disease mineral bone disease. #4. Insulin-dependent diabetes mellitus. Plan: Hemodialysis tomorrow. Will avoid aggressive ultrafiltration for now. Start Renvela 800 mg 3 times daily with meals. Follow-up cortisol level. Follow-up cultures. Stable to be transferred out of the intensive care unit from nephrology standpoint. Thank you for the consultation. I will continue to follow the patient with you during his hospital stay.
[2016-06-28] MEDS ORDERED: ISOSORBIDE MONONITRATE ER 60 MG TAB.ER.24H PO SCH (12:00)
[2016-06-28 12:11] LABS: Glucose,Whole Blood 146 mg/dL (75-99)
[2016-06-28] MEDS: SEVELAMER 800 MG TAB PO SCH ×2 (13:30→18:08)
[2016-06-28 18:07] LABS: Glucose,Whole Blood 91 mg/dL (75-99)
--- NOTE | 2016-06-28 18:19 | PN ---
DATE OF SERVICE: 06/28/2016 This 66-year-old gentleman was admitted with hypotension is being monitored in the ICU overnight. The patient also following the patient had received IV fluid boluses. The patient is off vasopressors and the was found to be 12, ruling out the possibility of adrenal insufficiency. The creatinine 6.21. Blood sugars are slightly fluctuating. INR 3.1. Hemoglobin 12.2. PAST MEDICAL HISTORY: Reviewed. REVIEW OF SYSTEMS: CARDIOVASCULAR: No angina or palpitations. RESPIRATORY: As mentioned earlier. GASTROINTESTINAL: no nausea or vomiting. GENITOURINARY: no dysuria. As mentioned earlier. Current medications are reviewed and include: 1. [place] 5 mg q6h p.r.n. 2. Ventolin. 4. Xanax 0.5 t.i.d. 5. Tenormin 25 mg. 6. Lipitor 40 mg b.i.d. 7. Pulmicort 8. Lofibra 160 mg daily. 10. Flonase 2 sprays daily. 11. Lasix 20 mg b.i.d. 12. Dilaudid 0.5 q6h p.r.n. 13. Levemir 60 units subcu q.h.s. 14. Imdur 30 mg b.i.d. 15. Cephulac 10 mg p.o. daily. 16. Singulair 10 mg q.h.s. 17. Lanoxin 0.2, p.r.n. 18. Nitrostat. 19. Protonix 40 mg daily. 20. Renvela 800 mg p.o. daily. 21. Ultram 50 mg q6h p.r.n. 22. Coumadin 2.5 mg q.h.s. PHYSICAL EXAMINATION: GENERAL: Alert and oriented times three. VITAL SIGNS: Pulse 69. Blood pressure 150/82. Respiratory rate 13. Temperature normal. Pulse ox normal. Temperature 98.2. HEENT: Conjunctivae normal. Oral mucosa moist. NECK: Obese. CARDIOVASCULAR: S1, S2 muffled. RESPIRATORY: Breath sounds diminished at the bases. Bilateral scattered rhonchi and crackles. ABDOMEN: Soft, nontender. LEGS: Minimal edema. CENTRAL NERVOUS SYSTEM: Diffusely weak. LABS: WBC 8.2, hemoglobin 12.2, creatinine 6.21. Other labs noted. ASSESSMENT: 1. Hypotension for evaluation, possibly hypovolemia and generalized significant weakness, present on admission. 2. Chronic renal failure stage V, on hemodialysis. 3. History of asthma. 4. History of coronary artery disease. 5. History of cerebrovascular accident, transient ischemic attack. 6. Diabetes mellitus type 2. 7. History of deep venous thrombosis. 8. History of gastroesophageal reflux disease. 9. Hypertension, essential history. 10. Hyperlipidemia. 11. History of myocardial infarction. 12. History of sleep apnea. 13. Cerebrovascular accident. 14. History of cataracts. 15. History Methicillin-resistant Staph aureus. 16. History of femoral popliteal bypass times two. 17. History of depression. 18. Remote history nicotine dependence. 19. History of coronary artery disease, coronary artery bypass grafting. 20. Congestive heart failure with chronic diastolic dysfunction, ejection fraction 50% to 55%. 21. History of paroxysmal atrial fibrillation. 22. History of diabetic nephropathy. 23. History of transient ischemic attack. 24. History of morbid obesity. 25. History of gait dysfunction. 26. FULL CODE. RECOMMENDATIONS AND DISCUSSION: In this 66-year-old gentleman who presented with multiple complex medical issues, at this time, I recommend to continue current medications, continue symptomatic treatment. Blood pressure seems to be improving. Serum cortisol normal, rule out the possibility of adrenal insufficiency. However, I would recommend to continue current medications and continue symptomatic treatment. Monitor blood sugars closely. Monitor blood pressure closely. The patient is on atenolol 25 mg p.o. daily and Imdur 30 b.i.d. I will cut down dose of Atenolol and continue to monitor. Continue the rest of the medications. Deep venous thrombosis prophylaxis. Further recommendations to follow. MTDD
[2016-06-28 20:59] LABS: Glucose,Whole Blood 125 mg/dL (75-99)
[2016-06-28] MEDS: ATORVASTATIN 40 MG TAB PO SCH (21:00)
[2016-06-28] MEDS: MONTELUKAST 10 MG TAB PO SCH (21:00)
[2016-06-28] MEDS: WARFARIN 2.5 MG TAB PO SCH (21:00)
[2016-06-28] MEDS: INSULIN DETEMIR 100 UNIT/ML 10 ML VIAL SQ SCH (21:22)
[2016-06-28] MEDS: SODIUM CHLORIDE 0.9% 1,000 ML IV SCH (22:32)
[2016-06-29 01:47] LABS: Glucose,Whole Blood 120 mg/dL (75-99)
[2016-06-29 04:35] LABS: Basophils % (A) 1 %; Eosinophils # (A) 0.1 k/uL (0-0.7); Eosinophils % (A) 2 %; HCT 34.3 % (39.0-53.0); HDW 2.39; HGB 11.1 gm/dL (13.0-17.5); Luc # (Auto) 0.25; Luc % (Auto) 4; Lymphocytes # (A) 2.2 k/uL (1.0-4.8); Lymphocytes % (A) 32 %; MCH 29.6 pg (25.0-35.0); MCHC 32.5 g/dL (31.0-37.0); MCV 91.3 fL (80.0-100.0); Mean Platelet Volume 8.7; Monocytes # (A) 0.5 k/uL (0-1.0); Monocytes % (A) 7 %; Neutrophils # (A) 3.6 k/uL (1.3-7.7); Neutrophils % (A) 54 %; RBC 3.76 m/uL (4.30-5.90); RDW 14.1 % (11.5-15.5); WBC 6.6 k/uL (3.8-10.6); WBC (Perox) 6.49
[2016-06-29 04:39] LABS: INR 2.7 (<1.1); Prothrombin Time 26.1 sec (9.0-12.0)
[2016-06-29 04:51] LABS: Calcium 8.8 mg/dL (8.4-10.2); Magnesium 1.8 mg/dL (1.6-2.3); Phosphorous 7.6 mg/dL (2.5-4.5); Potassium 5.5 mmol/L (3.5-5.1)
[2016-06-29 07:24] LABS: Glucose,Whole Blood 132 mg/dL (75-99)
[2016-06-29] MEDS: PANTOPRAZOLE 40 MG TABLET PO SCH (07:46)
[2016-06-29] MEDS: SEVELAMER 800 MG TAB PO SCH ×3 (07:46→20:07)
[2016-06-29] MEDS: INSULIN LISPRO (humaLOG) 300 UNIT/3 ML VIAL SQ SCH ×3 (09:07→21:08)
[2016-06-29] MEDS: FLUoxetine HCL 20 MG CAP PO SCH (09:10)
[2016-06-29] MEDS: ATENOLOL 12.5 MG TAB PO SCH (09:10)
[2016-06-29] MEDS: FENOFIBRATE 160 MG TAB PO SCH (09:10)
[2016-06-29] MEDS: FLUTICASONE 50MCG/SPRAY NASAL 16GM EA NOSTRIL SCH (09:10)
[2016-06-29] MEDS: ALLOPURINOL 100 MG TAB PO SCH ×2 (09:10→20:08)
[2016-06-29] MEDS: FUROSEMIDE 20 MG TAB PO SCH ×2 (09:11→15:57)
[2016-06-29] MEDS: LACTULOSE 20 GM/30 ML CUP PO SCH (09:12)
[2016-06-29] MEDS: BUDESONIDE 0.5 MG/2 ML NEBU INHALATION SCH ×2 (09:14→20:38)
[2016-06-29] MEDS: ALBUTEROL NEBULIZED 2.5 MG/3 ML INHALATION SCH ×4 (09:14→20:38)
[2016-06-29] MEDS: ISOSORBIDE MONONITRATE ER 30 MG TAB.ER.24H PO SCH ×2 (10:16→20:08)
[2016-06-29 11:49] LABS: Glucose,Whole Blood 196 mg/dL (75-99)
[2016-06-29 16:47] LABS: Glucose,Whole Blood 186 mg/dL (75-99)
--- NOTE | 2016-06-29 18:30 | PN ---
DATE OF SERVICE: 06/29/2016 This 66-year-old gentleman admitted with hypotension, possibly hypovolemic, and generalized weakness, is being closely monitored. The patient received multiple IV fluids. The patient was transferred out of ICU. No chest pain. No palpitation. No fever. On exam, alert and oriented x3. Pulse 57, blood pressure 115/56, respiratory rate 16, temperature 97.2, pulse ox 98% on room air. HEENT: Conjunctivae normal. NECK: No jugular venous distention. CARDIOVASCULAR SYSTEM: S1, S2 muffled. RESPIRATORY SYSTEM: Breath sounds diminished at the bases. No rhonchi. No crackles. ABDOMEN: Soft, obese, non-tender. LEGS: No edema. No swelling. NERVOUS SYSTEM: No focal deficit. LABS: WBC 6.6, hemoglobin 11.1. INR is 2.7. Sodium 137, potassium 5.5. Creatinine is 7.54. ASSESSMENT: 1. Hypotension for evaluation, possibly hypovolemic. 2. Significant weakness, present on admission. 3. Chronic renal failure, stage V, on hemodialysis. 4. History of asthma. 5. History of coronary artery disease. 6. History of cerebrovascular accident, transient ischemic attack. 7. History of diabetes mellitus, type 2. 8. History of deep venous thrombosis. 9. History of gastroesophageal reflux disease. 10. Hypertension, essential, history. 11. Hyperlipidemia. 12. History of myocardial infarction. 13. History of sleep apnea. 14. History of cerebrovascular accident. 15. History of cataracts. 16. History of methicillin-resistant Staphylococcus aureus. 17. History of femoropopliteal bypass x2. 18. History of depression. 19. Remote history of nicotine dependence. 20. History of coronary artery disease, coronary artery bypass graft. 21. History of congestive heart failure with chronic diastolic dysfunction; ejection fraction 50% to 55%. 22. History of paroxysmal atrial fibrillation. 23. History of diabetic nephropathy. 24. History of transient ischemic attack. 25. History of morbid obesity. 26. History of gait dysfunction. 27. FULL CODE. RECOMMENDATIONS AND DISCUSSION: In this 66-year-old gentleman who presented with multiple medical problems, at this time I would recommend continuing current medications, continue symptomatic treatment. Blood pressure seems to be stabilizing at this time. Continue to monitor. Guarded prognosis. Monitor blood sugars closely. See orders. Increase ambulation. Monitor potassium closely. Low-potassium diet. Further recommendations to follow. Low-phosphorus diet also recommended.
--- NOTE | 2016-06-29 18:48 | PN ---
Patient is seen for follow-up for end-stage renal disease. He was admitted to the hospital with evidence of hypotension and he initially presented to [facility]. He received fluids and was maintained on Levophed and was therefore transferred to [facility]. Currently, he is asymptomatic. Blood pressures have not been low. Patient is scheduled for hemodialysis today. Cultures have not grown anything. There are no IV fluids on board. On examination, blood pressure 115/56, heart rate 57 per minute, he is afebrile. Examination of the heart S1 and S2. Examination of the lungs: Bilateral breath sounds are heard. ABDOMEN: Soft, nontender. Obese. Examination of lower extremities shows trace edema bilaterally. Labs show sodium 137, potassium 5.5. Hemoglobin 11.1 g/dL. ASSESSMENT: 1. End-stage renal disease on hemodialysis on a Saturday, Saturday, Saturday schedule. Will arrange for hemodialysis today. 2. Mild hyperkalemia. Expect improvement with dialysis. 3. Hyperphosphatemia. Patient should be maintained on his phosphate binders, which is Renvela which should be given with meals. 4. Hypotension, currently resolved with no evidence of infection, currently. No antibiotics on board. 5. Generalized debility. 6. History of coronary artery disease. PLAN: Agree with decreasing beta blockers. We will dialyze the patient today and possible discharge over the next day or so.
[2016-06-29 18:49] LABS: Glucose,Whole Blood 153 mg/dL (75-99)
[2016-06-29] MEDS: WARFARIN 2.5 MG TAB PO SCH (20:08)
[2016-06-29] MEDS: MONTELUKAST 10 MG TAB PO SCH (20:08)
[2016-06-29] MEDS: ATORVASTATIN 40 MG TAB PO SCH (20:08)
[2016-06-29 21:02] LABS: Glucose,Whole Blood 184 mg/dL (75-99)
[2016-06-29] MEDS: INSULIN DETEMIR 100 UNIT/ML 10 ML VIAL SQ SCH (21:08)
[2016-06-29] MEDS: SODIUM CHLORIDE 0.9% 1,000 ML IV SCH (21:11)
[2016-06-30 02:06] LABS: Glucose,Whole Blood 162 mg/dL (75-99)
[2016-06-30 05:49] LABS: Glucose,Whole Blood 98 mg/dL (75-99)
[2016-06-30] MEDS: INSULIN LISPRO (humaLOG) 300 UNIT/3 ML VIAL SQ SCH ×3 (06:03→17:16)
[2016-06-30] MEDS: PANTOPRAZOLE 40 MG TABLET PO SCH (06:34)
[2016-06-30] MEDS: SEVELAMER 800 MG TAB PO SCH ×3 (06:35→17:19)
[2016-06-30 06:58] LABS: Basophils % (A) 0 %; CH 29.6; CHCM 32.3; Eosinophils # (A) 0.2 k/uL (0-0.7); Eosinophils % (A) 2 %; HCT 34.3 % (39.0-53.0); HDW 2.33; HGB 11.4 gm/dL (13.0-17.5); Luc # (Auto) 0.23; Luc % (Auto) 3; Lymphocytes # (A) 1.3 k/uL (1.0-4.8); Lymphocytes % (A) 17 %; MCH 30.7 pg (25.0-35.0); MCHC 33.4 g/dL (31.0-37.0); Mean Platelet Volume 8.9; Monocytes # (A) 0.5 k/uL (0-1.0); Monocytes % (A) 7 %; Neutrophils # (A) 5.2 k/uL (1.3-7.7); Neutrophils % (A) 71 %; RBC 3.72 m/uL (4.30-5.90); WBC 7.4 k/uL (3.8-10.6); WBC (Perox) 7.69
[2016-06-30 07:03] LABS: INR 3.2 (<1.1); Prothrombin Time 30.8 sec (9.0-12.0)
[2016-06-30 07:14] LABS: Calcium 9.1 mg/dL (8.4-10.2); Potassium 4.8 mmol/L (3.5-5.1)
[2016-06-30] MEDS: ALBUTEROL NEBULIZED 2.5 MG/3 ML INHALATION SCH ×4 (07:46→19:46)
[2016-06-30] MEDS: BUDESONIDE 0.5 MG/2 ML NEBU INHALATION SCH ×2 (07:46→19:46)
[2016-06-30] MEDS: LACTULOSE 20 GM/30 ML CUP PO SCH (08:43)
[2016-06-30] MEDS: FLUoxetine HCL 20 MG CAP PO SCH (08:44)
[2016-06-30] MEDS: FLUTICASONE 50MCG/SPRAY NASAL 16GM EA NOSTRIL SCH (08:44)
[2016-06-30] MEDS: FUROSEMIDE 20 MG TAB PO SCH ×2 (08:44→17:19)
[2016-06-30] MEDS: ATENOLOL 12.5 MG TAB PO SCH (08:44)
[2016-06-30] MEDS: FENOFIBRATE 160 MG TAB PO SCH (08:44)
[2016-06-30] MEDS: ISOSORBIDE MONONITRATE ER 30 MG TAB.ER.24H PO SCH ×2 (08:44→20:17)
[2016-06-30] MEDS: ALLOPURINOL 100 MG TAB PO SCH ×2 (08:44→20:17)
[2016-06-30 11:53] LABS: Glucose,Whole Blood 126 mg/dL (75-99)
[2016-06-30 16:44] LABS: Glucose,Whole Blood 119 mg/dL (75-99)
[2016-06-30] MEDS: SODIUM CHLORIDE 0.9% 1,000 ML IV SCH (20:16)
[2016-06-30] MEDS: ATORVASTATIN 40 MG TAB PO SCH (20:17)
[2016-06-30] MEDS: MONTELUKAST 10 MG TAB PO SCH (20:17)
[2016-06-30] MEDS: WARFARIN 2.5 MG TAB PO SCH (20:20)
[2016-06-30] MEDS ORDERED: INSULIN GLARGINE 100 UNIT/ML 10 ML VIAL SQ ONE (21:00)
[2016-06-30 23:05] LABS: Glucose,Whole Blood 144 mg/dL (75-99)
[2016-07-01] MEDS: INSULIN DETEMIR 100 UNIT/ML 10 ML VIAL SQ SCH ×2 (03:09→21:35)
[2016-07-01] MEDS: INSULIN LISPRO (humaLOG) 300 UNIT/3 ML VIAL SQ SCH ×5 (03:09→21:33)
[2016-07-01] MEDS: PANTOPRAZOLE 40 MG TABLET PO SCH (06:32)
[2016-07-01] MEDS: SEVELAMER 800 MG TAB PO SCH ×3 (06:32→17:54)
[2016-07-01 06:50] LABS: Basophils % (A) 0 %; CH 29.8; CHCM 32.4; Eosinophils # (A) 0.2 k/uL (0-0.7); Eosinophils % (A) 3 %; HDW 2.36; HGB 10.6 gm/dL (13.0-17.5); Luc # (Auto) 0.24; Luc % (Auto) 4; Lymphocytes # (A) 1.5 k/uL (1.0-4.8); Lymphocytes % (A) 27 %; MCH 28.9 pg (25.0-35.0); MCHC 31.3 g/dL (31.0-37.0); MCV 92.4 fL (80.0-100.0); Mean Platelet Volume 8.5; Monocytes # (A) 0.4 k/uL (0-1.0); Monocytes % (A) 7 %; Neutrophils # (A) 3.1 k/uL (1.3-7.7); Neutrophils % (A) 58 %; RBC 3.68 m/uL (4.30-5.90); RDW 14.1 % (11.5-15.5); WBC 5.3 k/uL (3.8-10.6); WBC (Perox) 5.55
[2016-07-01 06:58] LABS: INR 3.5 (<1.1); Prothrombin Time 34.1 sec (9.0-12.0)
[2016-07-01 07:20] LABS: Glucose,Whole Blood 119 mg/dL (75-99)
[2016-07-01 07:25] LABS: Calcium 9.3 mg/dL (8.4-10.2); Potassium 4.9 mmol/L (3.5-5.1)
[2016-07-01] MEDS: FLUTICASONE 50MCG/SPRAY NASAL 16GM EA NOSTRIL SCH (08:11)
[2016-07-01] MEDS: LACTULOSE 20 GM/30 ML CUP PO SCH (08:11)
[2016-07-01] MEDS: FLUoxetine HCL 20 MG CAP PO SCH (08:13)
[2016-07-01] MEDS: ATENOLOL 12.5 MG TAB PO SCH (08:13)
[2016-07-01] MEDS: FUROSEMIDE 20 MG TAB PO SCH ×2 (08:13→17:54)
[2016-07-01] MEDS: ISOSORBIDE MONONITRATE ER 30 MG TAB.ER.24H PO SCH ×2 (08:13→19:41)
[2016-07-01] MEDS: FENOFIBRATE 160 MG TAB PO SCH (08:13)
[2016-07-01] MEDS: ALLOPURINOL 100 MG TAB PO SCH ×2 (08:13→19:41)
[2016-07-01] MEDS: ALBUTEROL NEBULIZED 2.5 MG/3 ML INHALATION SCH ×4 (09:15→22:12)
[2016-07-01] MEDS: BUDESONIDE 0.5 MG/2 ML NEBU INHALATION SCH ×2 (09:16→22:12)
[2016-07-01 12:12] LABS: Glucose,Whole Blood 281 mg/dL (75-99)
[2016-07-01] MEDS ORDERED: traMADol 50 MG TAB PO PRN (13:41)
--- NOTE | 2016-07-01 14:24 | PN ---
Patient is seen for follow-up for end-stage renal disease. He is normally maintained on a Saturday, Saturday, Saturday schedule for dialysis. No significant complaints today. On examination, blood pressure is 111/78, heart rate 67 per minute. The patient is afebrile. Examination of the heart S1 and S2. Examination of the lungs: Bilateral breath sounds are heard. ABDOMEN: Soft, nontender. Examination of lower extremities shows no significant edema. INSTALLATIONS INSPECTOR exam shows patient is moving all 4 extremities. Labs show potassium 4.9 from today. Hemoglobin 10.6 g/dL. ASSESSMENT: 1. End-stage renal disease on hemodialysis on a Saturday, Saturday, Saturday schedule. Will arrange for hemodialysis in a.m. 2. Anemia of chronic disease. 3. Generalized debility with a history of falls. The patient will be going to rehab. 4. History of cerebrovascular accident/transient ischemic attack. PLAN: Hemodialysis in a.m. possible discharge tomorrow after dialysis.
--- NOTE | 2016-07-01 14:59 | PN ---
DATE OF SERVICE: 06/30/2016 This 66-year-old gentleman who was admitted with hypotension secondary hypervolemia also complaining of tiredness, weakness. Patient is improving and being stabilized. Patient is a resident at [facility] in [place]. At this time no chest pain, no palpitations. No fever. On exam, alert and oriented x3. Pulse 64, blood pressure 140/75, respirations 18, temperature 96.6, pulse ox 100% on room air. HEENT: Conjunctivae normal. NECK: No jugular venous distention. CARDIOVASCULAR: S1 and S2, muffled. RESPIRATORY: Breath sounds diminished at the bases. A few rhonchi. No crackles. ABDOMEN: Soft, obese, nontender. LEGS: No edema, no swelling. NERVOUS SYSTEM: No focal deficits. LABS: WBC 7, hemoglobin 11.4. The creatinine is 4.98. ASSESSMENT: 1. Hypotension for evaluation, possibly hypovolemic. 2. Significant weakness present on admission secondary to hypotension. 3. Chronic renal failure, stage V on hemodialysis. 4. History of asthma. 5. History of coronary artery disease. 6. History of cerebrovascular accident, transient ischemic attack. 7. History of diabetes mellitus type 2. 8. History of deep venous thrombosis. 9. History of gastroesophageal reflux disease. 10. Hypertension, essential history. 11. Hyperlipidemia. 12. History of myocardial infarction. 13. Obstructive sleep apnea. 14. History of cerebrovascular accident. 15. History of cataracts. 16. History of methicillin-resistant Staphylococcus aureus. 17. History of femoropopliteal bypass x2. 18. History of depression. 19. Remote history of nicotine dependence. 20. History of coronary artery disease, coronary artery bypass grafting. 21. History of congestive heart failure with chronic diastolic dysfunction, ejection fraction 50 to 55%. 22. Paroxysmal atrial fibrillation. 23. History of diabetic nephropathy. 24. History of transient ischemic attack. 25. Morbid obesity. 26. History of gait dysfunction. 27. FULL CODE RECOMMENDATIONS AND DISCUSSION: In this 66-year-old gentleman who presented with multiple complex medical issues, we will monitor the patient closely. Continue the current medications, continue symptomatic treatment. Otherwise at this time I would recommend monitor blood pressure closely. Increase ambulation. ECF rehab. Further recommendations to follow.
[2016-07-01 17:21] LABS: Glucose,Whole Blood 166 mg/dL (75-99)
[2016-07-01] MEDS: WARFARIN 2.5 MG TAB PO SCH (19:41)
[2016-07-01] MEDS: ATORVASTATIN 40 MG TAB PO SCH (19:41)
[2016-07-01] MEDS: MONTELUKAST 10 MG TAB PO SCH (19:41)
[2016-07-01 21:18] LABS: Glucose,Whole Blood 146 mg/dL (75-99)
[2016-07-01] MEDS: SODIUM CHLORIDE 0.9% 1,000 ML IV SCH (21:35)
[2016-07-02 02:32] LABS: Glucose,Whole Blood 115 mg/dL (75-99)
[2016-07-02 06:19] LABS: Basophils # (A) 0.1 k/uL (0-0.2); Basophils % (A) 1 %; CH 30.1; CHCM 32.7; Eosinophils # (A) 0.2 k/uL (0-0.7); Eosinophils % (A) 3 %; HCT 32.3 % (39.0-53.0); HDW 2.48; HGB 10.7 gm/dL (13.0-17.5); Luc # (Auto) 0.27; Luc % (Auto) 5; Lymphocytes # (A) 1.5 k/uL (1.0-4.8); Lymphocytes % (A) 24 %; MCH 30.7 pg (25.0-35.0); MCHC 33.3 g/dL (31.0-37.0); MCV 92.4 fL (80.0-100.0); Mean Platelet Volume 8.7; Monocytes # (A) 0.5 k/uL (0-1.0); Monocytes % (A) 8 %; Neutrophils # (A) 3.6 k/uL (1.3-7.7); Neutrophils % (A) 60 %; RBC 3.49 m/uL (4.30-5.90); WBC 6.1 k/uL (3.8-10.6); WBC (Perox) 5.87
[2016-07-02 06:26] LABS: INR 2.1 (<1.1); Prothrombin Time 20.7 sec (9.0-12.0)
[2016-07-02 06:32] LABS: Calcium 9.3 mg/dL (8.4-10.2); Potassium 4.8 mmol/L (3.5-5.1)
[2016-07-02 06:58] LABS: Glucose,Whole Blood 95 mg/dL (75-99)
[2016-07-02] MEDS: INSULIN LISPRO (humaLOG) 300 UNIT/3 ML VIAL SQ SCH ×2 (07:02→12:11)
[2016-07-02] MEDS: SEVELAMER 800 MG TAB PO SCH ×2 (07:31→13:44)
[2016-07-02] MEDS: PANTOPRAZOLE 40 MG TABLET PO SCH (07:31)
[2016-07-02] MEDS: ALBUTEROL NEBULIZED 2.5 MG/3 ML INHALATION SCH ×3 (09:32→15:06)
[2016-07-02] MEDS: BUDESONIDE 0.5 MG/2 ML NEBU INHALATION SCH (09:32)
[2016-07-02 11:15] VITALS: BP 154/87; PULSE 61; RESP 18; TEMP 97.3
--- NOTE | 2016-07-02 11:24 | PN ---
DATE OF SERVICE: 07/01/2016 This 66-year-old gentleman who was admitted with hypotension, also had hypovolemia also. No chest pain. No palpitations. No fever. The patient improved significantly. On exam, alert and oriented times three. Pulse 71, blood pressure 122/72. Respiratory rate 18, temperature 97.9, pulse ox 100% on room air. HEENT: Conjunctivae normal. NECK: No jugular venous distention. CARDIOVASCULAR: S1, S2 muffled. RESPIRATORY: Breath sounds diminished at the bases. No rhonchi, no crackles. ABDOMEN: Soft. Nontender. LEGS: No edema. No swelling. CENTRAL NERVOUS SYSTEM: No focal deficits. LABS: Creatinine is 5.2. hemoglobin 10.7, INR 3.5. ASSESSMENT: 1. Hypotension for evaluation, possibly hypovolemic. 2. Significant weakness present on admission secondary to hypotension. 3. Chronic renal failure stage V, on hemodialysis. 4. History of asthma. 5. History of coronary artery disease. 6. History of cerebrovascular accident, transient ischemic attack. 7. History of diabetes mellitus type 2. 8. History of deep venous thrombosis. 9. History of gastroesophageal reflux disease. 10. Hypertension, essential. 11. History of hyperlipidemia. 12. History of myocardial infarction. 13. Obstructive sleep apnea. 14. History of cerebrovascular accident. 15. History of cataracts. 16. History of Methicillin-resistant Staph aureus. 17. History of femoral popliteal bypass x2. 18. History of depression. 19. Remote history nicotine dependence. 20. History of coronary artery disease, coronary artery bypass grafting. 21. History of congestive heart failure with chronic diastolic dysfunction, ejection fraction 50 to 55%. 22. Paroxysmal atrial fibrillation. 23. History of diabetic nephropathy. 24. History of transient ischemic attack. 25. History of morbid obesity. 26. History of gait dysfunction. 27. FULL CODE. RECOMMENDATIONS AND DISCUSSION: In this 66-year-old gentleman who presented with multiple complex medical issues, we will monitor the patient closely. Continue the current medications. Continue symptomatic treatment. Otherwise, at this time, I would recommend continue the current medications. Monitor blood pressure closely. Increase ambulation. Possible ECF rehab soon. Further recommendations to follow.
[2016-07-02 11:53] LABS: Glucose,Whole Blood 99 mg/dL (75-99)
--- NOTE | 2016-07-02 12:52 | PN ---
Patient is seen for follow-up for end-stage renal disease. He is scheduled for hemodialysis today following which he will most likely be discharged. We are awaiting discharge arrangements to [facility] in [place]. On examination, blood pressure is 154/87, heart rate 74 per minute. The patient is afebrile. Examination of the heart S1 and S2. Examination of lungs, bilateral breath sounds are heard. ABDOMEN: Soft, nontender. Examination of lower extremities shows no significant edema. RN POSTPARTUM exam is grossly intact. Labs show sodium 141, potassium 4.8. Hemoglobin 10.7 g/dL. ASSESSMENT: 1. End-stage renal disease on hemodialysis on a Saturday, Saturday, Saturday schedule. The patient will be dialyzed today. 2. Anemia of chronic disease. 3. Generalized debility and history of falls going to rehab facility in [place]. 4. Chronic kidney disease bone mineral disorder. PLAN: Hemodialysis today, following which patient can be discharged.
--- NOTE | 2016-07-02 12:58 | DS ---
DATE OF ADMISSION: 06/27/2016 DATE OF DISCHARGE: FINAL DIAGNOSES: 1. Hypotension possibly hypovolemia. 2. Significant weakness present on admission secondary to hypotension. 3. Chronic renal disease, stage V, on hemodialysis. 4. History of asthma. 5. History of coronary artery disease. 6. History of cerebrovascular accident, transient ischemic attack. 7. History of diabetes type 2. 8. History of deep venous thrombosis. 9. History of gastroesophageal reflux disease. 10. Hypertension, essential history. 11. History of hyperlipidemia. 12. History of myocardial infarction. 13. History of obstructive sleep apnea. 14. History of cerebrovascular accident. 15. History of cataracts. 16. History of methicillin-resistant Staphylococcus aureus. 17. History of femoropopliteal bypass x2. 18. History of depression. 19. Remote history of nicotine dependence. 20. History of coronary artery disease, coronary artery bypass grafting. 21. History of congestive heart failure with chronic diastolic dysfunction, ejection fraction 50% to 55%. 22. Paroxysmal atrial fibrillation. 23. History of diabetic nephropathy. 24. History of transient ischemic attack. 25. Super morbid obesity. 26. History of gait dysfunction. 27. FULL CODE. DISCHARGE DISPOSITION: The patient will be discharged in stable condition with guarded prognosis. The patient is being transferred to [facility]. Total time taken 35 minutes. HISTORY OF PRESENT ILLNESS: This 66-year-old gentleman presented with a past medical history of multiple medical problems and admitted with hypotension and possible hypovolemia. The patient was treated symptomatically. Patient improved significantly. Patient also had weakness and the patient was seen by Dr. Garrison and hemodialysis was continued. Medication adjusted. On exam. Vitals stable. CARDIOVASCULAR: S1, S2. ABDOMEN: Soft. NERVOUS SYSTEM: No focal deficits. Hemoglobin 0.7 and INR is 2.1. DISCHARGE ADVICE: 1. Diet is cardiac. 2. Activity limited until follow-up. 3. Follow-up with Dr. Mario Skelton in [facility]. 4. CBC, BMP, PT, INR in 2 to 3 days. 5. Follow with Dr. Man in 1 to 2 weeks. 6. Follow with Dr. Garrison as advised. MEDICATIONS: 1. Ventolin 2.5 q.i.d. and p.r.n. 2. Zyloprim 100 mg p.o. b.i.d. 3. Tenormin 12.5 mg p.o. daily. 4. Lipitor 40 mg q.h.s. 5. Qvar 2 puffs b.i.d. 6. Fluoxetine 80 mg p.o. daily. 7. Lofibra 160 mg p.o. daily. 8. Flonase 2 sprays daily. 9. Lasix 20 mg p.o. b.i.d. 10. Insulin degludec 60 units q.h.s. 11. Imdur ER 30 mg p.o. b.i.d. 12. Lactulose 10 mg daily p.r.n. 13. Singulair 10 mg q.h.s. 14. Nitrostat 0.4. 15. Lovaza 2 grams p.o. b.i.d. 16. Protonix 40 mg b.i.d. 17. Renvela 800 mg p.o. t.i.d. 18. Coumadin 2.5 mg q.h.s. 19. Ultram 50 mg q.6 p.r.n. 20. Accu-Cheks before meals and at bedtime and NovoLog scale; 150 to 200, 2 units; 201 to 250, 4 units; 251 to 300, 6 units; 301 to 350, 8 units; 351 to 400, 10 units; more than 400 call. Once again, the patient will be discharged in a stable condition with guarded prognosis.
[2016-07-02] MEDS: ISOSORBIDE MONONITRATE ER 30 MG TAB.ER.24H PO SCH ×2 (13:32→13:43)
[2016-07-02] MEDS: FUROSEMIDE 20 MG TAB PO SCH (13:32)
[2016-07-02] MEDS: LACTULOSE 20 GM/30 ML CUP PO SCH (13:42)
[2016-07-02] MEDS: FLUoxetine HCL 20 MG CAP PO SCH (13:43)
[2016-07-02] MEDS: FENOFIBRATE 160 MG TAB PO SCH (13:43)
[2016-07-02] MEDS: ATENOLOL 12.5 MG TAB PO SCH (13:43)
[2016-07-02] MEDS: FLUTICASONE 50MCG/SPRAY NASAL 16GM EA NOSTRIL SCH (13:43)
[2016-07-02] MEDS: ALLOPURINOL 100 MG TAB PO SCH (13:44)
== END 2016-07-02 15:42 | DRG 641 ==
LOC: EC 16:40 → 6ICU 21:17 → 6SEL 06-29 10:31
PROVIDERS: ADMIT Hospitalist; ATTEND Hospitalist
PROC: 5A1D60Z (ICD-10-PCS; principal; 2016-06-29)
DX: E86.1 Hypovolemia (principal); I13.2 Hypertensive heart and chronic kidney disease with heart failure and with stage 5 chronic kidney disease, or end stage renal disease; N18.5 Chronic kidney disease, stage 5; I50.32 Chronic diastolic (congestive) heart failure; I95.89 Other hypotension; E11.21 Type 2 diabetes mellitus with diabetic nephropathy; E66.01 Morbid (severe) obesity due to excess calories; I48.0 Paroxysmal atrial fibrillation; E87.5 Hyperkalemia; E83.39 Other disorders of phosphorus metabolism; F32.9 Major depressive disorder, single episode, unspecified; E11.22 Type 2 diabetes mellitus with diabetic chronic kidney disease; G47.33 Obstructive sleep apnea (adult) (pediatric); E78.5 Hyperlipidemia, unspecified; I25.2 Old myocardial infarction; R26.9 Unspecified abnormalities of gait and mobility; K21.9 Gastro-esophageal reflux disease without esophagitis; D63.8 Anemia in other chronic diseases classified elsewhere; J45.909 Unspecified asthma, uncomplicated; I25.10 Atherosclerotic heart disease of native coronary artery without angina pectoris; Z68.39 Body mass index [BMI] 39.0-39.9, adult; Z86.73 Personal history of transient ischemic attack (TIA), and cerebral infarction without residual deficits; Z86.718 Personal history of other venous thrombosis and embolism; Z86.14 Personal history of Methicillin resistant Staphylococcus aureus infection; Z79.01 Long term (current) use of anticoagulants; Z79.4 Long term (current) use of insulin; Z79.899 Other long term (current) drug therapy; Z87.891 Personal history of nicotine dependence; Z95.1 Presence of aortocoronary bypass graft; Z91.81 History of falling; Z99.2 Dependence on renal dialysis
CPT/HCPCS: 80048; 82533; 83036; 83735; 84100; 85025; 85610; 87040; 87086; 90935; 93005; 94640; 94760; 96365; 96366; 99285

== ENCOUNTER 2016-08-15 13:13 | Inpatient (IN) | payer MEDICARE, OTHER ==
[2016-08-15 15:31] VITALS: BMI 40.5
[2016-08-15] MEDS ORDERED: NITROGLYCERIN SL TABS 0.4 MG TAB SUBLINGUAL PRN (16:42)
[2016-08-15] MEDS ORDERED: ALBUTEROL NEBULIZED 2.5 MG/3 ML INHALATION PRN (16:42)
[2016-08-15] MEDS ORDERED: traMADol 50 MG TAB PO PRN (16:42)
[2016-08-15 17:09] LABS: Glucose,Whole Blood 195 mg/dL (75-99)
[2016-08-15] MEDS ORDERED: HYDROmorphone 1 MG/ML 1 ML SYRINGE IVP PRN (17:31)
[2016-08-15] MEDS ORDERED: ALPRAZolam 0.25 MG TAB PO PRN (17:31)
[2016-08-15] MEDS ORDERED: HYDROcodone/APAP 5-325MG 1 EACH TAB PO PRN (17:31)
--- NOTE | 2016-08-15 17:53 | XR ---
EXAMINATION TYPE: XR chest 1V portable DATE OF EXAM: 08/15/2016 COMPARISON: 06/27/2016 HISTORY: Heart failure. Chest pain. TECHNIQUE: Single frontal view of the chest is obtained. FINDINGS: There is no heart failure nor confluent pneumonic infiltrate. There are sternal wires. Cos tophrenic angles are clear. IMPRESSION: No active cardiopulmonary disease. No change.
[2016-08-15] MEDS: SODIUM CHLORIDE 0.9% 1,000 ML IV SCH (17:58)
[2016-08-15] MEDS: INSULIN LISPRO (humaLOG) 300 UNIT/3 ML VIAL SQ SCH ×2 (17:58→21:44)
[2016-08-15] MEDS ORDERED: WARFARIN 2.5 MG TAB PO SCH (18:00)
[2016-08-15] MEDS: SEVELAMER 800 MG TAB PO SCH (18:04)
[2016-08-15 18:09] LABS: Basophils % (A) 1 %; CH 30.8; CHCM 33.4; Eosinophils # (A) 0.1 k/uL (0-0.7); Eosinophils % (A) 2 %; HCT 35.8 % (39.0-53.0); HGB 11.9 gm/dL (13.0-17.5); Luc % (Auto) 4; Lymphocytes # (A) 1.4 k/uL (1.0-4.8); Lymphocytes % (A) 20 %; MCH 30.8 pg (25.0-35.0); MCHC 33.2 g/dL (31.0-37.0); MCV 92.7 fL (80.0-100.0); Mean Platelet Volume 8.6; Monocytes # (A) 0.5 k/uL (0-1.0); Monocytes % (A) 7 %; Neutrophils # (A) 4.9 k/uL (1.3-7.7); Neutrophils % (A) 67 %; RBC 3.86 m/uL (4.30-5.90); RDW 14.5 % (11.5-15.5); WBC 7.4 k/uL (3.8-10.6); WBC (Perox) 7.29
[2016-08-15 18:27] LABS: Calcium 9.3 mg/dL (8.4-10.2); Potassium 4.6 mmol/L (3.5-5.1)
[2016-08-15 18:36] LABS: INR 3.8 (<1.1); Prothrombin Time 37.4 sec (9.0-12.0)
[2016-08-15] MEDS: BECLOMETHASONE DIP 80 MCG/PUFF INHALER INHALATION SCH (19:39)
[2016-08-15] MEDS: BUDESONIDE 0.5 MG/2 ML NEBU INHALATION SCH (19:39)
[2016-08-15] MEDS: ALBUTEROL NEBULIZED 2.5 MG/3 ML INHALATION SCH (19:40)
[2016-08-15 20:34] LABS: Glucose,Whole Blood 200 mg/dL (75-99)
[2016-08-15] MEDS ORDERED: NON-FORMULARY DRUG (Omega-3 Acid Ethyl Esters [Lovaza] 2 GM) PO SCH (21:00)
[2016-08-15] MEDS: INSULIN DETEMIR 100 UNIT/ML 10 ML VIAL SQ SCH (21:43)
[2016-08-15] MEDS: MONTELUKAST 10 MG TAB PO SCH (21:43)
[2016-08-15] MEDS: MELATONIN 3 MG TABLET PO SCH (21:43)
[2016-08-15] MEDS: ATORVASTATIN 40 MG TAB PO SCH (21:43)
[2016-08-15] MEDS: ALLOPURINOL 100 MG TAB PO SCH (21:43)
[2016-08-16 07:07] LABS: Glucose,Whole Blood 136 mg/dL (75-99)
[2016-08-16] MEDS: BECLOMETHASONE DIP 80 MCG/PUFF INHALER INHALATION SCH ×2 (07:12→19:21)
[2016-08-16] MEDS: BUDESONIDE 0.5 MG/2 ML NEBU INHALATION SCH ×2 (07:12→19:21)
[2016-08-16] MEDS: ALBUTEROL NEBULIZED 2.5 MG/3 ML INHALATION SCH ×4 (07:12→19:20)
[2016-08-16] MEDS: INSULIN LISPRO (humaLOG) 300 UNIT/3 ML VIAL SQ SCH ×4 (08:08→22:16)
[2016-08-16] MEDS: ASPIRIN 81 MG CHEW PO SCH (08:09)
[2016-08-16] MEDS: SEVELAMER 800 MG TAB PO SCH ×3 (08:09→17:47)
[2016-08-16] MEDS: FLUoxetine HCL 20 MG CAP PO SCH (08:09)
[2016-08-16] MEDS: PANTOPRAZOLE 40 MG TABLET PO SCH (08:09)
[2016-08-16] MEDS: ALLOPURINOL 100 MG TAB PO SCH ×2 (08:10→22:15)
[2016-08-16] MEDS: ATENOLOL 12.5 MG TAB PO SCH (08:10)
[2016-08-16] MEDS: FLUTICASONE 50MCG/SPRAY NASAL 16GM EA NOSTRIL SCH (08:10)
[2016-08-16] MEDS: EZETIMIBE 10 MG TAB PO SCH (08:10)
[2016-08-16] MEDS: FENOFIBRATE 160 MG TAB PO SCH (08:10)
[2016-08-16] MEDS: LACTULOSE 20 GM/30 ML CUP PO SCH ×2 (08:11→08:19)
[2016-08-16 08:12] LABS: Calcium 9.7 mg/dL (8.4-10.2)
[2016-08-16 08:15] LABS: Potassium 4.9 mmol/L (3.5-5.1)
[2016-08-16] MEDS: FOLIC ACID-VIT B COMPLEX-VIT C 1 CAP PO SCH (08:43)
[2016-08-16] MEDS ORDERED: ISOSORBIDE MONONITRATE ER 60 MG TAB.ER.24H PO SCH (09:00)
[2016-08-16 09:11] LABS: Aty Lym Flag Slight; CH 30.4; CHCM 33.8; HCT 32.5 % (39.0-53.0); HDW 2.71; HGB 11.4 gm/dL (13.0-17.5); MCH 31.8 pg (25.0-35.0); MCHC 35.1 g/dL (31.0-37.0); MCV 90.6 fL (80.0-100.0); Mean Platelet Volume 8.5; RBC 3.59 m/uL (4.30-5.90); RDW 14.6 % (11.5-15.5); WBC (Perox) 5.16
--- NOTE | 2016-08-16 11:06 | P.NPCON ---
History of Present Illness - Reason for Consult end stage renal disease - History of Present Illness Reason for consultation: End-stage renal disease History of present illness: Patient is a 66-year-old male seen in renal consultation for end-stage renal disease. He is maintained on hemodialysis on a Saturday schedule via left upper extremity AV fistula. Patient presented to the hospital with hypotension. Patient states he completed hemodialysis yesterday and had almost 4 L ultrafiltration. His blood pressure did drop towards the end of treatment and he was sent to [facility]. He was then subsequently transferred to [facility]. His blood pressures here have been stable. Patient denies any nausea vomiting or diarrhea. He denies any chest pain or shortness of breath. Denies any dizziness or headaches. He is currently resting in bed. He has no active complaints at this time. No fever or chills. Vital signs are stable. General: The patient appeared well nourished and normally developed. HEENT: Head exam is unremarkable. Neck is without jugular venous distension. LUNGS: Lungs are clear to auscultation and percussion. Breath sounds decreased. HEART: Rate and Rhythm are regular. First and second heart sounds normal. No murmurs, rubs or gallops. ABDOMEN: Abdominal exam reveals normal bowel sounds. Non-tender and non- distended. No evidence of peritonitis. EXTREMITITES: No clubbing, cyanosis, or edema. Past Medical History Past Medical History: Asthma, Coronary Artery Disease (CAD), Chest Pain / Angina , CVA/TIA, Diabetes Mellitus, Deep Vein Thrombosis (DVT), GERD/Reflux, Hyperlipidemia, Hypertension, Myocardial Infarction (IA), Renal Disease, Sleep Apnea/CPAP/BIPAP Additional Past Medical History / Comment(s): HAD URI IN JANUARY 2014-NOW RESOLVEDCVA x4 1995 leaving his left side weaker then right. Cataract repair in right Last Myocardial Infarction Date:: unable to obtain History of Any Multi-Drug Resistant Organisms: MRSA Date of last positivie culture/infection: 08/12/05 MDRO Source:: Ankle left Past Surgical History: Heart Catheterization Additional Past Surgical History / Comment(s): Fem pop bypass X2, quad bypass, finger amputation, bone and skin graft Past Anesthesia/Blood Transfusion Reactions: No Reported Reaction Past Psychological History: Depression Additional Psychological History / Comment(s): currently lives at [facility]. No experience. Medically disabled. There are no animals within the home. seasonal disorder Smoking Status: Former smoker Past Alcohol Use History: None Reported Additional Past Alcohol Use History / Comment(s): chews tobacco Past Drug Use History: None Reported - Past Family History Father History Unknown: Yes Family Medical History: Chest Pain / Angina Mother Family Medical History: Cancer, Diabetes Mellitus Additional Family Medical History / Comment(s): Heart issues Brother(s) Family Medical History: Cancer, Diabetes Mellitus Additional Family Medical History / Comment(s): stomach CA, Depression Sister(s) Family Medical History: Cancer Additional Family Medical History / Comment(s): Lung ca, breast Ca, Bone CA, Stomach CA Medications and Allergies Home Medications Medication Instructions Recorded Confirmed Type Montelukast [Singulair] 10 mg PO HS 12/19/13 08/15/16 History Allopurinol [Zyloprim] 100 mg PO BID 04/24/14 08/15/16 History Fenofibrate [Lofibra] 160 mg PO DAILY 04/24/14 08/15/16 History Fluticasone Propionate [Flonase] 2 sprays EA NOSTRIL DAILY 04/24/14 08/15/16 History Lavinia-3 Acid Ethyl Esters [Lovaza] 2 gm PO BID 12/12/15 08/15/16 History FLUoxetine HCL 80 mg PO DAILY 02/02/16 08/15/16 History Furosemide [Lasix] 20 mg PO DIRECTED 03/19/16 08/15/16 History Insulin Degludec [Tresiba 50 unit SQ HS 03/19/16 08/15/16 History Flextouch U-100] Atorvastatin [Lipitor] 40 mg PO HS 06/27/16 08/15/16 History Beclomethasone Dipropionate [Qvar 2 puff INHALATION RT-BID 06/27/16 08/15/16 History 40 mcg] Lactulose 10 gm PO DAILY 06/27/16 08/15/16 History Albuterol Sulfate [Proair Hfa] 2 puff INHALATION RT-Q4H PRN 08/15/16 08/15/16 History Aspirin [Adult Low Dose Aspirin EC] 81 mg PO DAILY 08/15/16 08/15/16 History Beclomethasone Dip 80 Mcg/Puff 2 puff INHALATION RT-BID 08/15/16 08/15/16 History [Qvar 80 mcg] Dialyvite 1 tab PO DAILY 08/15/16 08/15/16 History Ezetimibe [Ezetimibe] 10 mg PO DAILY 08/15/16 08/15/16 History Insulin Aspart [NovoLOG] See Protocol SQ ACHS 08/15/16 08/15/16 History Isosorbide Mononitrate ER [Imdur] 60 mg PO DAILY 08/15/16 08/15/16 History Allergies Allergy/AdvReac Type Severity Reaction Status Date / Time calcipotriene [From Dovonex] Allergy Unknown Verified 06/27/16 17:47 Physical Exam Vitals: Vital Signs Temp Pulse Pulse Resp BP Pulse Ox 08/16/16 11:01 66 08/16/16 08:00 16 08/16/16 07:22 64 08/16/16 07:11 64 08/16/16 07:00 97.5 F L 64 16 113/62 97 08/15/16 23:00 98.4 F 74 16 105/62 98 08/15/16 19:40 64 08/15/16 15:30 97.0 F L 68 18 100/61 98 Intake and Output 08/15/16 08/16/16 08/16/16 22:59 06:59 14:59 Intake Total 120 Balance 120 Intake: Oral 120 Other: Voiding Method Urinal # Voids 0 1 1 # Bowel Movements 0 1 Weight 114 kg 113.5 kg 113.5 kg Patient Weight 08/17/16 06:59 Weight 113.5 kg Results - Lab Results Most recent lab results Calcium 9.7 mg/dL (8.4-10.2) 08/16/16 07:28 08/16/16 07:33 08/16/16 07:28 Assessment and Plan Plan: Assessment: #1. End-stage renal disease maintained on hemodialysis on a Saturday schedule via left upper extremity AV fistula. #2. Hypotension towards the end of dialysis related to ultrafiltration. Improved. #3. Chronic kidney disease mineral bone disease. #4. Anemia of chronic kidney disease. Hemoglobin at goal. Plan: Hemodialysis tomorrow with goal 3 L ultrafiltration. Maintain Renvela with meals. Anticipate discharge soon. Thank you for the consultation. I will continue to follow the patient with you during his hospital stay.
[2016-08-16 11:10] LABS: Add Differential Manual Differential
[2016-08-16 11:13] LABS: Nucleated Red Blood Cells 0 /100 WBC (0-0); Total Cells Counted 100
[2016-08-16 12:00] LABS: INR 4.1 (<1.1)
[2016-08-16 12:09] LABS: Glucose,Whole Blood 219 mg/dL (75-99)
--- NOTE | 2016-08-16 13:21 | XR ---
EXAMINATION TYPE: XR chest 1V portable DATE OF EXAM: 08/16/2016 COMPARISON: Prior chest x-ray 08/15/2016 HISTORY: Congestion and shortness of breath TECHNIQUE: Single frontal view of the chest is obtained. FINDINGS: Lung volumes are somewhat low. Heart size remains prominent. No pneumothorax or pleural ef fusion evident. Interstitium appears somewhat increased. Pulmonary vascularity and julio not significa ntly changed. No evident focal pneumonia. IMPRESSION: Difficult to exclude a component of pulmonary venous hypertension and interstitial edema , findings could be technical. Consider follow-up PA and lateral chest x-ray for better evaluation
[2016-08-16] MEDS: SODIUM CHLORIDE 0.9% 1,000 ML IV SCH (13:23)
[2016-08-16 17:26] LABS: Glucose,Whole Blood 197 mg/dL (75-99)
[2016-08-16 20:44] LABS: Glucose,Whole Blood 220 mg/dL (75-99)
[2016-08-16] MEDS ORDERED: HYDROCORTISONE SUPPOSITORY 25 MG SUPP RECTAL SCH (21:00)
[2016-08-16] MEDS: MELATONIN 3 MG TABLET PO SCH (22:15)
[2016-08-16] MEDS: INSULIN DETEMIR 100 UNIT/ML 10 ML VIAL SQ SCH (22:15)
[2016-08-16] MEDS: ATORVASTATIN 40 MG TAB PO SCH (22:15)
[2016-08-16] MEDS: MONTELUKAST 10 MG TAB PO SCH (22:15)
[2016-08-17 06:51] LABS: Glucose,Whole Blood 103 mg/dL (75-99)
[2016-08-17 07:31] VITALS: BP 127/69; RESP 14; TEMP 97
[2016-08-17] MEDS: INSULIN LISPRO (humaLOG) 300 UNIT/3 ML VIAL SQ SCH (07:44)
[2016-08-17] MEDS: ALBUTEROL NEBULIZED 2.5 MG/3 ML INHALATION SCH ×2 (08:09→12:19)
[2016-08-17] MEDS: BUDESONIDE 0.5 MG/2 ML NEBU INHALATION SCH (08:09)
[2016-08-17] MEDS: BECLOMETHASONE DIP 80 MCG/PUFF INHALER INHALATION SCH (08:09)
[2016-08-17] MEDS: EZETIMIBE 10 MG TAB PO SCH (08:29)
[2016-08-17] MEDS: LACTULOSE 20 GM/30 ML CUP PO SCH (08:29)
[2016-08-17] MEDS: FLUTICASONE 50MCG/SPRAY NASAL 16GM EA NOSTRIL SCH (08:29)
[2016-08-17] MEDS: SEVELAMER 800 MG TAB PO SCH ×2 (08:29→11:56)
[2016-08-17] MEDS: ALLOPURINOL 100 MG TAB PO SCH (08:30)
[2016-08-17] MEDS: PANTOPRAZOLE 40 MG TABLET PO SCH (08:30)
[2016-08-17] MEDS: ASPIRIN 81 MG CHEW PO SCH (08:30)
[2016-08-17] MEDS: FENOFIBRATE 160 MG TAB PO SCH (08:30)
[2016-08-17] MEDS: FOLIC ACID-VIT B COMPLEX-VIT C 1 CAP PO SCH (08:30)
[2016-08-17] MEDS: FLUoxetine HCL 20 MG CAP PO SCH (08:31)
[2016-08-17] MEDS: SODIUM CHLORIDE 0.9% 1,000 ML IV SCH (08:37)
[2016-08-17] MEDS ORDERED: ISOSORBIDE MONONITRATE ER 30 MG TAB.ER.24H PO SCH (09:00)
--- NOTE | 2016-08-17 09:15 | P.PN ---
Subjective Patient is seen in follow-up for end-stage renal disease. He is maintained on hemodialysis on a Saturday schedule. Patient was sent from dialysis due to hypotension after 4 L of ultrafiltration was done. Patient is asymptomatic at this time and his blood pressures are improved. No vomiting or diarrhea. No dizziness or headaches. He is currently undergoing hemodialysis. Vital signs are stable. General: The patient appeared well nourished and normally developed. HEENT: Head exam is unremarkable. Neck is without jugular venous distension. LUNGS: Lungs are clear to auscultation and percussion. Breath sounds decreased. HEART: Rate and Rhythm are regular. First and second heart sounds normal. No murmurs, rubs or gallops. ABDOMEN: Abdominal exam reveals normal bowel sounds. Non-tender and non- distended. No evidence of peritonitis. EXTREMITITES: No clubbing, cyanosis, or edema. Objective - Vital Signs Vital signs: Vital Signs Temp 97.0 F L 08/17/16 07:00 Pulse 82 08/17/16 08:24 Resp 14 08/17/16 08:24 BP 127/69 08/17/16 07:00 Pulse Ox 96 08/17/16 08:09 Intake & Output 08/16/16 08/17/16 08/17/16 18:59 06:59 18:59 Intake Total 1320 Output Total 25 Balance 1295 Weight 113.5 kg 114 kg Intake: Oral 1320 Output: Urine 25 Other: Voiding Method Urinal Urinal # Voids 1 0 # Bowel Movements 1 0 - Labs CBC & Chem 7: 08/16/16 07:33 08/16/16 07:28 Labs: Abnormal Lab Results - Last 24 Hours (Table) 08/16/16 08/16/16 08/16/16 Range/Units 07:32 12:02 17:24 PT 40.0 H (9.0-12.0) sec POC Glucose (mg/dL) 219 H 197 H (75-99) mg/dL 08/16/16 08/17/16 Range/Units 20:43 06:50 PT (9.0-12.0) sec POC Glucose (mg/dL) 220 H 103 H (75-99) mg/dL Assessment and Plan Plan: Assessment: #1. End-stage renal disease maintained on hemodialysis on a Saturday schedule via left upper extremity AV fistula. #2. Hypotension towards the end of dialysis related to ultrafiltration. Improved. #3. Chronic kidney disease mineral bone disease. #4. Anemia of chronic kidney disease. Hemoglobin at goal. Plan: Currently undergoing hemodialysis with goal 3 L ultrafiltration. Maintain Renvela with meals. Anticipate discharge soon.
[2016-08-17] MEDS: ATENOLOL 12.5 MG TAB PO SCH (10:37)
[2016-08-17 11:03] VITALS: PULSE 68
[2016-08-17] MEDS ORDERED: FLUDROCORTISONE 0.1 MG TAB PO SCH (11:15)
--- NOTE | 2016-08-17 11:38 | P.DS ---
Providers Date of admission: 08/15/16 15:13 Expected date of discharge: 08/17/16 Attending physician: MD Dr. Gainni Robledo Consults: 08/15/16 15:54 Consult Physician Routine Consulting Provider: Inocencia Garrison Consult Reason/Comments: dialysis / your patient Do you want consulting provider notified?: Yes Primary care physician: Raysa Sommer Hospital Course: Final Diagnoses: 1. Hypotension 2. Chronic kidney disease on hemodialysis 3. Anemia of chronic disease 4. Diabetes mellitus 5. CAD And multiple other medical issues. Hospital course: This is a 66-year-old gentleman admitted with hypotension, chronic kidney disease on hemodialysis and multiple other medical issues. Today patient Requested hemodialysis be stopped early after only 1.3 L removed. Patient no longer wishes to continue on hemodialysis. Discussion between Dr. Wilson, patient and significant other. Final consensus after their meaning as patient will be transferred to [facility] today with hospice. Prognosis poor. The impression and plan of care has been dictated as directed as a scribe. : I performed a H&P examination of this patient and discussed the same with the dictator. I agree with the dictator's note. Any additional findings/opinions/ etc. will be noted. Plan - Discharge Summary New Discharge Prescriptions: New LORazepam [Ativan] 0.5 mg SL TID #20 tab Melatonin 3 mg PO HS tab MORPHINE ORAL SOLN 20mg/mL [Roxanol Oral Soln Conc 20MG/ML] 10 mg SL Q4H PRN #30 ml PRN Reason: Pain Continue Fluticasone Propionate [Flonase] 2 sprays EA NOSTRIL DAILY Furosemide [Lasix] 20 mg PO DIRECTED Nitroglycerin Sl Tabs [Nitrostat] 0.4 mg SUBLINGUAL Q5M PRN #0 tab PRN Reason: Chest Pain Beclomethasone Dipropionate [Qvar 40 mcg] 2 puff INHALATION RT-BID Albuterol Nebulized [Ventolin Nebulized] 2.5 mg INHALATION RT-QID nebu Atenolol [Tenormin] 12.5 mg PO DAILY dose Beclomethasone Dip 80 Mcg/Puff [Qvar 80 mcg] 2 puff INHALATION RT-BID Discontinued Allopurinol [Zyloprim] 100 mg PO BID [place]-3 Acid Ethyl Esters [Lovaza] 2 gm PO BID FLUoxetine HCL 80 mg PO DAILY Insulin Degludec [Tresiba Flextouch U-100] 50 unit SQ HS Atorvastatin [Lipitor] 40 mg PO HS Lactulose 10 gm PO DAILY Pantoprazole [Protonix] 40 mg PO AC-BRKFST tablet.dr [place] [Renvela] 800 mg PO TID-W/MEALS tab Warfarin [Coumadin] 2.5 mg PO HS tab traMADol HCL [Ultram] 50 mg PO Q6HR PRN #20 PRN Reason: Pain Albuterol Sulfate [Proair Hfa] 2 puff INHALATION RT-Q4H PRN PRN Reason: Shortness Of Breath Aspirin [Adult Low Dose Aspirin EC] 81 mg PO DAILY Dialyvite 1 tab PO DAILY Ezetimibe [Ezetimibe] 10 mg PO DAILY Insulin Aspart [NovoLOG] See Protocol SQ ACHS Isosorbide Mononitrate ER [Imdur] 60 mg PO DAILY Discharge Medication List Fluticasone Propionate [Flonase] 2 sprays EA NOSTRIL DAILY 04/24/14 [History] Furosemide [Lasix] 20 mg PO DIRECTED 03/19/16 [History] Nitroglycerin Sl Tabs [Nitrostat] 0.4 mg SUBLINGUAL Q5M PRN #0 tab 03/21/16 [Rx] Beclomethasone Dipropionate [Qvar 40 mcg] 2 puff INHALATION RT-BID 06/27/16 [ History] Albuterol Nebulized [Ventolin Nebulized] 2.5 mg INHALATION RT-QID nebu [Rx] Atenolol [Tenormin] 12.5 mg PO DAILY dose 07/02/16 [Rx] Beclomethasone Dip 80 Mcg/Puff [Qvar 80 mcg] 2 puff INHALATION RT-BID 08/15/16 [ History] LORazepam [Ativan] 0.5 mg SL TID #20 tab 08/17/16 [Rx] MORPHINE ORAL SOLN 20mg/mL [Roxanol Oral Soln Conc 20MG/ML] 10 mg SL Q4H PRN # 30 ml 08/17/16 [Rx] Melatonin 3 mg PO HS tab 08/17/16 [Rx] Follow up Appointment(s)/Referral(s): Jesus Man MD [REFERRING] - As Needed (Pts PCP) Mario Skelton MD [REFERRING] - 3 Days (While at ECF) Patient Instructions/Handouts: Pancreatitis (DC), Meal Planning with Diabetes Exchanges (DC) Activity/Diet/Wound Care/Special Instructions: [facility] with hospice Discharge Disposition: TRANSFER TO SNF/ECF
[2016-08-17 11:57] LABS: Glucose,Whole Blood 132 mg/dL (75-99)
--- NOTE | 2016-08-18 09:11 | HP ---
CHIEF COMPLAINTS: Hypotension and weakness. HISTORY OF PRESENT ILLNESS: This 66-year-old gentleman with past medical history of chronic renal failure, asthma, CAD, CABG, CVA, TIA, diabetes mellitus , DVT, GERD, hypertension, history of myocardial infarction, history of cardiac catheterization being followed by Dr. Mario Skelton in the outpatient setting was receiving hemodialysis in [place]. The patient is actually a resident of [facility] in [place]. The patient has multiple medical issues and gait dysfunction also. During the dialysis the blood pressure went down to 80 systolic and dialysis could not be completed. 40 minutes prior and the patient was sent to [facility] in [place] and the patient was sent to [facility] for further evaluation and treatment. Patient received 500 mL bolus and the blood pressure has gone up to 100 mmHg at this time. The patient complains of general tiredness. There is no history of chest pain, no history of palpitations, no history of headache, loss of consciousness, nausea, vomiting, diarrhea, fever, rigor or chills at this time. PAST MEDICAL HISTORY: Asthma, CAD, chest pain, CABG, CVA, TIA, diabetes mellitus , DVT, GERD, hypertension, hyperlipidemia, history of finger amputation, depression. Medications prior to admission include: 1. Ultram 50 mg q.6. p.r.n. 2. Coumadin 2.5 mg q.h.s. 3. Renvela 800 mg p.o. t.i.d. with meals. 4. Protonix 40 mg daily. 5. Lovaza 2 grams p.o. b.i.d. 6. Nitrostat sublingual p.r.n. 7. Singulair 10 mg q.h.s. 8. Lactulose 10 grams p.o. daily. 9. Imdur 60 mg p.o. daily. 10. Insulin degludec 15 subcutaneous q.h.s. 11. NovoLog a.c. and at bedtime. 12. Lasix 20 mg p.r.n. 13. Flonase 2 sprays daily. 14. Lofibra 160 mg p.o. daily. 15. Fluoxetine 80 mg p.o. daily. 17. QVAR 2 puffs b.i.d. 18. Aspirin 81 mg p.o. daily. 19. Zyloprim 100 mg p.o. b.i.d. 20. ProAir HFA 2 puffs q.4. p.r.n. 21. Ventolin 2.5 q.i.d. 22. Zetia 10 mg p.o. daily. 23. QVAR 40 mg 2 puffs b.i.d. 24. Lipitor 40 mg q.h.s. 25. Tenormin 12.5 mg p.o. daily. ALLERGIES: CALCIPOTRIENE. FAMILY HISTORY: History of cancer, diabetes mellitus and heart issues. SOCIAL HISTORY: Previous history of smoking. No history of alcohol intake. REVIEW OF SYSTEMS: ENT: No diminished hearing, no diminished vision. CARDIOVASCULAR: As mentioned. RESPIRATORY: As mentioned earlier. GI: No nausea. : No dysuria. NERVOUS SYSTEM: No numbness or weakness. ALLERGY/IMMUNOLOGY: As mentioned. MUSCULOSKELETAL: As mentioned. HEMATOLOGY: No history of anemia. ENDOCRINOLOGY: Diabetes. CONSTITUTIONAL: As mentioned. DERMATOLOGY: Negative. RHEUMATOLOGY: Negative. PSYCHIATRY: As mentioned earlier. PHYSICAL EXAMINATION: Alert, oriented x3. Pulse 68, blood pressure 100/64, respirations 18, temperature 97 degrees, pulse ox 98% on 2-L. HEENT: Conjunctivae normal. NECK: No jugular venous distention. CARDIOVASCULAR: S1, S2. RESPIRATORY: Breath sounds diminished in the bases. A few scattered rhonchi, no crackles. ABDOMEN: Soft, nontender. No mass palpable. LEGS: Bilateral cellulitis and hyperpigmentation is also present in the anterior part. Otherwise pulses diminished. NERVOUS SYSTEM: Higher function as mentioned earlier. Moves all four limbs. No focal motor sensory deficits. LYMPHATICS: No lymph nodes palpable in the neck, groin or axillae. SKIN: As mentioned. JOINTS: No active deforming arthropathy. LABS: Pending. ASSESSMENT: 1. Hypotension due to hemodialysis, possible hypovolemia. 2. Chronic renal failure stage V on hemodialysis. 3. History of asthma. 4. History of coronary artery disease. 5. History of cerebrovascular accident, transient ischemic attack. 6. History of diabetes mellitus type 2. 7. History of deep venous thrombosis. 8. History of gastroesophageal reflux disease. 9. Hypertension. 10. Hyperlipidemia. 11. History of myocardial infarction. 12. History of sleep apnea. 13. History of MRSA. 14. History of femoropopliteal bypass. 15. Coronary artery disease, coronary artery bypass graft. 16. History of finger amputation. 17. History of depression, not otherwise specified. 18. Remote history of nicotine dependence. 19. Obesity with body mass index of 40.6. 20. NO CODE, NO CPR, NO VENT. 21. History of congestive heart failure with ejection fraction of 50 to 55% with chronic diastolic dysfunction. 22. History of paroxysmal atrial fibrillation. 23. History of diabetic nephropathy. 24. Gait dysfunction. RECOMMENDATIONS AND DISCUSSION: This 66-year-old gentleman presented with multiple complications, we will monitor the patient closely.Continue the current medications, continue the symptomatic treatment. I would recommend IV fluid boluses and I would recommend to hold the beta blockers if the blood pressure is less than 100. Continue to monitor IV fluids at 50 mL/h. Monitor PT/ INR closely. Repeat labs. Prognosis guarded because of multiple complex medical issues. Further recommendations to follow. Discussed with the patient. See orders. Will also check cortisol also. Accu-Cheks a.c. and at bedtime. BARRETT
--- NOTE | 2016-08-18 17:45 | PN ---
DATE OF SERVICE: 08/16/2016 This 66-year-old gentleman who was admitted with significant hypotension and possible dehydration is being closely monitored. The patient is on IV fluid. Nephrology is following the patient closely, also. Hemoglobin is 11.4. Blood sugar is elevated to 219. Past medical history reviewed. REVIEW OF SYSTEMS: CARDIOVASCULAR SYSTEM: No angina. RESPIRATORY SYSTEM: As mentioned earlier. GI: As mentioned earlier. : No dysuria, retention. NERVOUS SYSTEM: No numbness, weakness. Current medications are reviewed and include: 1. [place] 5 mg q.6 p.r.n. 2. Ventolin 2.5 q.4 p.r.n. 3. Zyloprim 100 mg p.o. b.i.d. 4. Xanax 0.5 t.i.d. 5. Aspirin 81 mg daily. 6. Tenormin 12.5 mg. 7. Lipitor 40 mg. 8. Qvar 2 puffs b.i.d. 9. Zetia 10 mg. 10. Lofibra. 12. Dilaudid. 13. Levemir. 14. Imdur. 16. Melatonin. 17. Singulair. 18. Protonix. 19. Renvela. 20. Ultram. 21. Coumadin. PHYSICAL EXAMINATION: Patient is alert and oriented x3. Pulse 74, blood pressure 108/65, respirations 16, temperature 98.4, pulse ox 98% on room air. HEENT: Conjunctivae normal. Oral mucosa moist. NECK: No jugular venous congestion. No carotid bruit. No lymph node enlargement. CARDIAC: S1, S2 muffled. RESPIRATORY: Breath sounds diminished at the bases. A few scattered rhonchi and crackles. ABDOMEN: Soft. Obese. Non-tender. LEGS: No edema. No swelling. NERVOUS SYSTEM: Diffusely weak. LABS: WBC 5, hemoglobin 11.4. INR 4.1. Creatinine noted. ASSESSMENT: 1. Hypotension, possibly secondary to hypovolemia. 2. Chronic renal failure, stage V, on hemodialysis. 3. Coumadin coagulopathy, mild. 4. Anemia, normocytic. 5. Rule out congestive heart failure. 6. Multiple other complex medical issues, as documented earlier. RECOMMENDATIONS AND DISCUSSION: In this 66-year-old gentleman who presented with multiple complex medical issues, at this time I recommend to monitor blood sugars closely. I would also recommend a repeat chest x-ray; rule out the possibility of acute CHF. Continue to monitor. Closely follow with hemodialysis. Prognosis guarded. Further recommendations to follow. MTDD
== END 2016-08-17 13:04 | DRG 640 ==
LOC: 4MS4W 15:13
PROVIDERS: ADMIT Internal Medicine; ATTEND Internal Medicine
PROC: 5A1D00Z (ICD-10-PCS; principal; 2016-08-17)
DX: E86.1 Hypovolemia (principal); N18.6 End stage renal disease; I13.2 Hypertensive heart and chronic kidney disease with heart failure and with stage 5 chronic kidney disease, or end stage renal disease; I50.32 Chronic diastolic (congestive) heart failure; I95.9 Hypotension, unspecified; E11.22 Type 2 diabetes mellitus with diabetic chronic kidney disease; I48.0 Paroxysmal atrial fibrillation; Z95.1 Presence of aortocoronary bypass graft; E83.9 Disorder of mineral metabolism, unspecified; F32.9 Major depressive disorder, single episode, unspecified; D63.1 Anemia in chronic kidney disease; E66.9 Obesity, unspecified; E78.5 Hyperlipidemia, unspecified; G47.30 Sleep apnea, unspecified; I25.10 Atherosclerotic heart disease of native coronary artery without angina pectoris; I25.2 Old myocardial infarction; J45.909 Unspecified asthma, uncomplicated; K21.9 Gastro-esophageal reflux disease without esophagitis; R79.1 Abnormal coagulation profile; T45.515A Adverse effect of anticoagulants, initial encounter; R26.9 Unspecified abnormalities of gait and mobility; Z68.41 Body mass index [BMI] 40.0-44.9, adult; Z66 Do not resuscitate; Z79.4 Long term (current) use of insulin; Z79.82 Long term (current) use of aspirin; Z79.899 Other long term (current) drug therapy; Z86.14 Personal history of Methicillin resistant Staphylococcus aureus infection; Z87.891 Personal history of nicotine dependence; Z99.2 Dependence on renal dialysis; Z79.01 Long term (current) use of anticoagulants
CPT/HCPCS: 71010; 80048; 82533; 85025; 85610; 90935; 94640; 94760